=== PATIENT | female | born 1960 | race Caucasian/White ===

== ENCOUNTER 2022-08-09 08:30 | Outpatient (RCR) | payer OTHER, SELFPAY ==
[2022-08-02 11:30] VITALS: BP 164/88; PULSE 76; TEMP 36.9
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
[2022-08-02 11:31] VITALS: BMI 35.5
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
--- NOTE | 2022-08-03 08:39 | HO.PHP ---
The clients case was reviewed and opened in treatment team
--- NOTE | 2022-08-09 12:29 | PC.NURSE ---
Patient presents with increasing depression. Staff report that she has active SI with plan/intent to jump off a bridge or step in front of plane propellers at a local airport. Staff have spoke to patient's sister with patient present who is planning on meeting her sister in the ER. Patient will be a section 12 to the ER and staff will escort her to the ER. Nurse to Nurse done with charge nurse Julita in the ER. Reviewed aforementioned information. Also reviewed that patient has a history of hypothyroidism and hypertension and reports she has not been on medications for this in the past three years.
--- NOTE | 2022-08-09 12:42 | P.PNPSP_ITS ---
Subjective Subjective Date of Service: 08/09/22 Reason For Visit: depression Medical Problems Affecting Mental Status: No Interim History: Patient reports active suicidal ideation, with plan and intent. Plan is to either jump off a bridge, or go to [facility], step out in front of a plane with the propellers moving. Medication Compliance: Intermittent Side effects from medications: No Attending Groups: Yes Review of Systems Acute medical concerns: Yes untreated HTN Medical Review of Systems: unchanged Review of Systems Constitutional: Reports no additional constitutional complaints Mental Status Exam Mental Status Exam Narrative: Patient appears distraught, crying. Patient Appearance: Fatigued Patient Orientation: Person, Place, Time and Situation Level of Consciousness: Awake and Appropriate Patient Behavior: Appropriate, Cooperative and Crying Mood Description: Depressed Affect Description: Depressed Ability to Follow Directions: Good Speech Pattern: Clear Memory Description: Intact Hallucinations: None Delusions: Not Present Thought Process: Intact Thought Content: positive for Suicidal Ideation Depressive Symptoms: Difficulty Sleeping, Changes in Appetite (decreased), Crying Spells, Loss of Int. in Activity, Feelings of Worthlessness, Hopelessness, Feelings of Guilt, Unhappiness, Increased Fatigue, Thoughts of /Suicide and Loss of Energy Judgement: Poor Diagnostics Vital Signs (24Hr): BMI result Body Mass Index 35.5 Assessment & Plan Assessment & Plan (1) Major depressive disorder, recurrent severe without psychotic features: Status: Acute Code(s): F33.2 - Major depressive disorder, recurrent severe without psychotic features Assessment and Plan: This documentation writer was asked to meet with patient. Patient had reported in group and to clinician that she planned to jump off a bridge, or go to [facility] and step in front of a moving playing, so that the PROPELLER could ?chop me up ?. Patient appears distraught, crying. Clinician spoke with patient's sister on the phone. Sister had called program as she is extremely concerned about patient's safety. Patient is agreeable to be escorted to crisis for evaluation. (2) Chronic post-traumatic stress disorder (PTSD): Status: Acute Code(s): F43.12 - Post-traumatic stress disorder, chronic Plan 1. Section 12A signed. 2. Patient to be escorted to crisis for evaluation due to active SI with plans/intent. Patient educated on: diagnosis Informed Consent: understands Reason for contiued partial hosp. stay Substantial Risk for: harm to self Certification I certify that partial hospital treatment is medically necessary due to the symptoms and problems resulting from the patient's mental illness and the failure to treat the patient at the partial hospital level of care would likely result in the patient requiring inpatient psychiatric care which could not be prevented at a less intensive level of care. Total time managing care of this patient today __20__ minutes. Discharge Plan Discharge Attending provider: Rashid Quintanilla Medications: No Action bupropion HCl [Wellbutrin SR] 100 mg Tablet Sustained-Release 12 Hr 100 mg PO BID
--- NOTE | 2022-08-09 16:08 | HO.PHP ---
I sat with Vickie to speak with her sister Cuca to have a plan for the clients safety. Cuca expressed her concerns. We all decided that due to the clients severe level of depression and anxiety with suicidal ideation she would be better served by an inpatient admission. Vickie agreed to this and we devised a plan that included Cuca meeting Vickie at the ED here. Vickie is agreeable to the plan. The crisis team was called and Trini mc NP signed the section and Vickie was walked to the ED.
== END 2022-08-09 23:59 | disposition admitted as inpatient to this hospital (09) ==
LOC: HO.PHPA 08:30
PROVIDERS: Visit Provider Psychiatry & Neurology Psychiatry
DX: F33.2 Major depressive disorder, recurrent severe without psychotic features (principal); F43.12 Post-traumatic stress disorder, chronic
CPT/HCPCS: 90791; 90853

== ENCOUNTER 2022-08-09 13:35 | Inpatient (IN) | payer OTHER, SELFPAY ==
[2022-08-09 13:43] VITALS: BP 150/71; PULSE 92; RESP 18; TEMP 36.8; O2SAT 96; BMI 30.9
--- NOTE | 2022-08-09 13:54 | ED_ITS ---
HPI - General Adult General Chief complaint: Psychiatric Symptoms Stated complaint: sec 12 Time Seen by Provider: 08/09/22 13:54 Source: patient Mode of arrival: ambulatory Limitations: no limitations History of Present Illness HPI narrative: Patient is a 62 year old assigned female at with a history of MDD and PTSD presenting to the emergency department today with suicidal ideation on a section 12. Patient has plan to jump off bridge or run [place] propeller [place] the airport. Patient denies any dizziness, lightheadedness, abdominal pain, nausea, vomiting, fever, chills, blurry vision, double vision, loss of vision, chest pain, difficulty breathing, shortness of breath, back pain, night sweats, pain with urination, increased urinary frequency, increased urinary urgency, blood in her urine or stool, syncope or a near syncopal episode, recent trauma or falls, bowel incontinence, bladder incontinence, bowel retention, bladder retention, or any other complaints at this time. Relieving factors: none Exacerbating factors: none Associated symptoms: denies other symptoms Treatments prior to arrival: none Related Data Home Medications Medication Instructions Recorded Confirmed bupropion HCl 100 mg tablet,12 hr 100 mg PO BID 08/02/22 08/09/22 sustained-release (Wellbutrin SR) magnesium 250 mg tablet 250 mg PO DAILY 08/09/22 08/09/22 melatonin 3 mg capsule 3 mg PO BEDTIME PRN Insomnia 08/09/22 08/09/22 potassium citrate 99 mg capsule 100 mg PO DAILY 08/09/22 08/09/22 Allergies Allergy/AdvReac Type Severity Reaction Status Date / Time No Known Allergies Allergy Verified 08/09/22 14:16 Review of Systems Constitutional: Constitutional: Reports no additional constitutional complaints, Denies chills, Denies fever(s) and Denies night sweats Eyes: Eyes: Reports no additional eye complaints, Denies blurry vision, Denies change in vision, Denies diplopia, Denies eye discharge, Denies loss of vision and Denies eye pain ENT: Denies dizziness Cardiovascular: Cardiovascular: Reports no additional cardiovascular complaints, Denies chest pain, Denies lightheadedness, Denies Loss of Consciousness and Denies dyspnea Respiratory: Respiratory: Reports no additional respiratory complaints and Denies dyspnea Gastrointestinal: Gastrointestinal: Reports no additional gastrointestinal complaints, Denies abdominal pain, Denies melena, Denies hematochezia, Denies change in bowel habits and Denies change in stool character Genitourinary: Genitourinary: Denies hematuria, Denies urinary frequency, Denies dysuria, Denies urinary incontinence, Denies urinary hesitancy and Denies urinary urgency Musculoskeletal: Musculoskeletal: Reports no additional musculoskeletal complaints, Denies numbness and Denies tingling Neurologic: Denies dizziness, Denies loss of vision, Denies numbness and Denies tingling Psychiatric: Psychiatric: Reports no additional psychiatric complaints, Denies homicidal ideation and Reports suicidal ideation Endocrine: Endocrine: Reports no additional endocrine complaints Hematologic/Lymphatic: Hematologic/Lymphatic: Reports no additional hematologic/lymphatic complaints Allergic/Immunologic: Allergic/Immunologic: Reports no additional allergic/immunologic complaints [facility] Past Medical History Attestation statement: The following information was validated with the patient. Source: old records reviewed and nursing notes reviewed Medical History No known health problems Social History Social History Household Members: None Alcohol intake: never Patient Tobacco Use Status: Never used Tobacco Smoked in Last 30 Days: No Use of substances other than those prescribed or required for medical reasons: No Substance Use Type: Unknown Last Used Substance: Unknown Patient : No Physical Exam ED Vital Signs: Vital Signs - 24 hr 08/09/22 13:43 Temperature 98.3 F Pulse Rate 92 Respiratory Rate 18 Blood Pressure 150/71 H Pulse Oximetry 96 Oxygen Delivery Method Room Air BMI result Body Mass Index 30.9 Const General: cooperative, no acute distress, alert and awake Nutritional Appearance: well nourished Orientation/consciousness: patient oriented x3 Limitations: no limitations [facility] Head: Yes normal to inspection and Yes atraumatic Ears: hearing grossly normal bilaterally and external ears normal General nose exam: Normal external nose present, no nasal discharge noted and no epistaxis Face and sinus: Yes normal facial exam, No abrasion and No laceration Mouth: Normal oral and palatal mucosa present, no drooling and no muffled voice Eyes General: appearance normal, both eyes and all related structures Periorbital: periorbital findings normal Eyelids: Yes eyelids normal Conjunctivae: conjunctivae normal Pupils: Equal, round and reactive pupils present EOM: EOMs intact bilaterally Neck Neck: Yes normal visual inspection, Yes full ROM and Yes no lymphadenopathy Chest Chest palpation & inspection: normal inspection of the chest Resp Effort & Inspection: normal respiratory effort and able to speak in complete sentences GI Inspection: Yes normal to inspection Neuro General: patient oriented x3 and moves all extremities Cranial nerves: Yes Equal, round and reactive pupils present Cognition (Neuro): normal cognition Motor exam (neuro): 5/5 motor strength present throughout Sensory Exam: Normal double simultaneous stimulation for sensation Coordination: [id number] test normal Extrem General: Yes normal to inspection, Yes full ROM and Yes capillary refill normal Psych Speech and movement: Normal speech and movement present Affect: Sad affect present Attitude: cooperative Thought content: Suicidality present Medical Decision Making Medical Decision Making [facility] Narrative: Patient is a 62 year old assigned female at with a history of MDD and PTSD presenting to the emergency department today with suicidal ideation. Patient's physical exam was as noted in the physical exam portion of this chart. Patient's blood work was unremarkable. Patient's urine showed no acute process. Patient's EKG was unremarkable. I explained my physical exam findings as well as all test results to the patient. I answered all questions asked by the patient. Patient is an inpatient bed search at this time and will remain in the behavioral pod until she is placed. Differential Diagnosis Differential Diagnoses: The differential diagnosis associated with the present ation includes suicidal ideation Admission/Observation Consideration of admission/observation: Escalation of care including adm ission/observation considered Patient will be admitted to an inpatient psychiatric unit. Lab Data [facility] Lab Attestation statement: I reviewed the patient's lab results. My interpretation of these studies and their corresponding values is that they are grossly normal. 08/09/22 14:06 08/09/22 14:06 Labs: Lab Results 08/09/22 08/09/22 08/09/22 Range/Units 14:02 14:02 14:06 WBC (4.8-10.8) X10*3/uL RBC (4.20-5.50) X10*6/uL Hgb (12.0-16.0) g/dl Hct (37.0-47.0) % MCV (80.0-98.0) fL MCH (27.0-33.0) pg MCHC (31.0-35.0) g/dl RDW (11.0-16.0) % Plt Count (160-400) X10*3/uL MPV (9.4-12.3) fL Immature Gran % (Auto) (0.0-0.4) % Neut % (Auto) (45-73) % Lymph % (Auto) (20-40) % [place] % (Auto) (2-11) % Eos % (Auto) (0-4) % Baso % (Auto) (0-2) % Lymph # (Auto) (1.2-4.9) X10*3/uL [place] # (Auto) (0.1-1.2) X10*3/uL Eos # (Auto) (0.0-0.4) X10*3/uL Baso # (Auto) (0.0-0.2) X10*3/uL Abs Immat Gran (auto) (0.00-0.03) X10*3/uL Absolute Neuts (auto) (2.0-8.3) x10*3/uL Absolute Nucleated RBC (0.0-0.012) X10*3/uL Nucleated RBC % (auto) (0.0-0.2) /100WBC Sodium 135 (135-145) mmol/L Potassium 3.5 (3.3-5.1) mmol/L Chloride 101 (96-108) mmol/L Carbon Dioxide 24 (22-29) mmol/L Anion Gap 14 (12-20) BUN 10 (9-16) mg/dL Creatinine 0.91 (0.5-1.4) mg/dL Estim Creat Clear Calc 65.4 Estimated GFR > 60 Random Glucose 220 H (60-115) mg/dL Calcium 9.6 (8.4-10.2) mg/dL Total Bilirubin 0.5 (0.0-1.0) mg/dL AST 12 (5-31) U/L ALT 20 (0-31) U/L Alkaline Phosphatase 97 (39-117) U/L Total Protein 6.4 L (6.5-8.0) g/dL Albumin 4.2 (3.5-5.0) g/dL TSH 1.19 (0.32-4.0) uIU/mL Urine Color Yellow Urine Appearance Clear Urine pH 6.5 (5.0-9.0) Ur Specific [place] 1.020 (1.005-1.025) Urine Protein Trace (Neg-Trace) mg/dL Urine Glucose (UA) Negative (Negative) mg/dL Urine Ketones Trace (Negative) mg/dL Urine Blood Negative (Negative) Urine Nitrite Negative (Negative) Ur Leukocyte Esterase Moderate (2+) H (Negative) Urine RBC 0-2 (0-2) /HPF Urine WBC 21-50 H (0-5) /HPF Ur Squamous Epith Cells 3-5 (0-2) /HPF Urine Bacteria None Seen (None Seen) Hyaline Casts 0-2 (0-2) /LPF Salicylates < 5.0 L (15-30) mg/dL Urine Opiates Screen Not Detected (Not Detect) Urine Fentanyl Screen Not Detected (Not Detect) Acetaminophen < 17 (<30) mcg/mL Ur Barbiturates Screen Not Detected (Not Detect) Ur Phencyclidine Scrn Not Detected (Not Detect) Ur Amphetamines Screen Not Detected (Not Detect) U Benzodiazepines Scrn Not Detected (Not Detect) Urine Cocaine Screen Not Detected (Not Detect) U Marijuana (THC) Screen Not Detected (Not Detect) Ethyl Alcohol < 10 mg/dL COVID-19 (MIKE) (Negative) COVID-19 Clin Com 08/09/22 08/09/22 Range/Units 14:06 14:06 WBC 7.6 (4.8-10.8) X10*3/uL RBC 5.03 (4.20-5.50) X10*6/uL Hgb 14.2 (12.0-16.0) g/dl Hct 42.3 (37.0-47.0) % MCV 84.1 (80.0-98.0) fL MCH 28.2 (27.0-33.0) pg MCHC 33.6 (31.0-35.0) g/dl RDW 14.3 (11.0-16.0) % Plt Count 279 (160-400) X10*3/uL MPV 9.9 (9.4-12.3) fL Immature Gran % (Auto) 0.3 (0.0-0.4) % Neut % (Auto) 66.6 (45-73) % Lymph % (Auto) 24.9 (20-40) % [place] % (Auto) 5.5 (2-11) % Eos % (Auto) 2.0 (0-4) % Baso % (Auto) 0.7 (0-2) % Lymph # (Auto) 1.9 (1.2-4.9) X10*3/uL [place] # (Auto) 0.4 (0.1-1.2) X10*3/uL Eos # (Auto) 0.2 (0.0-0.4) X10*3/uL Baso # (Auto) 0.1 (0.0-0.2) X10*3/uL Abs Immat Gran (auto) 0.02 (0.00-0.03) X10*3/uL Absolute Neuts (auto) 5.1 (2.0-8.3) x10*3/uL Absolute Nucleated RBC 0.000 (0.0-0.012) X10*3/uL Nucleated RBC % (auto) 0.0 (0.0-0.2) /100WBC Sodium (135-145) mmol/L Potassium (3.3-5.1) mmol/L Chloride (96-108) mmol/L Carbon Dioxide (22-29) mmol/L Anion Gap (12-20) BUN (9-16) mg/dL Creatinine (0.5-1.4) mg/dL Estim Creat Clear Calc Estimated GFR Random Glucose (60-115) mg/dL Calcium (8.4-10.2) mg/dL Total Bilirubin (0.0-1.0) mg/dL AST (5-31) U/L ALT (0-31) U/L Alkaline Phosphatase (39-117) U/L Total Protein (6.5-8.0) g/dL Albumin (3.5-5.0) g/dL TSH (0.32-4.0) uIU/mL Urine Color Urine Appearance Urine pH (5.0-9.0) Ur Specific [place] (1.005-1.025) Urine Protein (Neg-Trace) mg/dL Urine Glucose (UA) (Negative) mg/dL Urine Ketones (Negative) mg/dL Urine Blood (Negative) Urine Nitrite (Negative) Ur Leukocyte Esterase (Negative) Urine RBC (0-2) /HPF Urine WBC (0-5) /HPF Ur Squamous Epith Cells (0-2) /HPF Urine Bacteria (None Seen) Hyaline Casts (0-2) /LPF Salicylates (15-30) mg/dL Urine Opiates Screen (Not Detect) Urine Fentanyl Screen (Not Detect) Acetaminophen (<30) mcg/mL Ur Barbiturates Screen (Not Detect) Ur Phencyclidine Scrn (Not Detect) Ur Amphetamines Screen (Not Detect) U Benzodiazepines Scrn (Not Detect) Urine Cocaine Screen (Not Detect) U Marijuana (THC) Screen (Not Detect) Ethyl Alcohol mg/dL COVID-19 (MIKE) Negative (Negative) COVID-19 Clin Com See Note Independent Interpretation I performed an independent interpretation of an: EKG Interpretation: Vent. Rate: 084 BPM ? ? Atrial Rate: 084 BPM P-R Int: 164 ms? QRS Dur: 106 ms QT Int: 378 ms ? ? ? P-R-T Axes: 037 -15 002 degrees QTc Int: 446 ms ? Normal sinus rhythm Possible Left atrial enlargement Incomplete right bundle branch block Minimal voltage criteria for LVH, may be normal variant ( R in aVL ) Nonspecific T wave abnormality Abnormal ECG No previous ECGs available DD/ 1428 Critical Care Time Critical Care Time Critical Care Time: Yes Total Critical Care Time: 30 Attestation: I spent 30 minutes of Critical Care Time with this patient. This does not include time spent on separately reported billable procedures. Discharge Plan Discharge Clinical Impression: Major depressive disorder, recurrent severe without psychotic features, Suic idal ideation Patient Disposition: Still a Patient Prescriptions: No Action melatonin 3 mg Capsule 3 mg PO BEDTIME PRN (Reason: Insomnia) potassium citrate 99 mg Capsule 100 mg PO DAILY Rx Instructions: OTC Pt will bring In magnesium 250 mg Tablet 250 mg PO DAILY Rx Instructions: OTC as stated by Pt / Pt will have OTC brought in bupropion HCl [Wellbutrin SR] 100 mg Tablet Sustained-Release 12 Hr 100 mg PO BID Rx Instructions: Pt reported taking 6mg last PM Interventions: Garrett-Suicide Risk Severity Scale Last Done: 08/09/22 14:11
--- NOTE | 2022-08-09 13:55 | ECG_ITS ---
Test Reason : MEDICATIONS Blood Pressure : / mmHG Vent. Rate : 084 BPM Atrial Rate : 084 BPM P-R Int : 164 ms QRS Dur : 106 ms QT Int : 378 ms P-R-T Axes : 037 -15 002 degrees QTc Int : 446 ms Normal sinus rhythm Possible Left atrial enlargement Incomplete right bundle branch block Minimal voltage criteria for LVH, may be normal variant ( R in aVL ) Nonspecific T wave abnormality Abnormal ECG No previous ECGs available Referred By: Ruthy Silva Electronically Signed By:Mik Pina
[2022-08-09 14:14] LABS: MANUAL DIFF FLAG NO
[2022-08-09 14:18] LABS: Appearance Urine Clear; Color Urine Yellow; Glucose Urine UA Negative (Negative); Leukocyte Esterase Urine Moderate (2+) (Negative); Nitrite Urine Negative (Negative); PH 6.5 (5.0-9.0); UMIC TRIGGER UA YES; Urine Blood Negative (Negative); Urine Ketones Trace mg/dL (Negative); Urine Protein Trace mg/dL (Neg-Trace)
[2022-08-09 14:18] LABS: Basophils Absolute Auto 0.1 X10*3/uL (0.0-0.2); Basophils Percent Auto 0.7 % (0-2); Eosinophils Absolute Auto 0.2 X10*3/uL (0.0-0.4); Hematocrit 42.3 % (37.0-47.0); Hemoglobin 14.2 g/dl (12.0-16.0); Imm Gran Abs Auto 0.02 X10*3/uL (0.00-0.03); Imm Gran Pct Auto 0.3 % (0.0-0.4); Lymphocytes Absolute Auto 1.9 X10*3/uL (1.2-4.9); Lymphocytes Percent Auto 24.9 % (20-40); Mean Corpuscular HGB Conc 33.6 g/dl (31.0-35.0); Mean Corpuscular Hemoglobin 28.2 pg (27.0-33.0); Mean Corpuscular Volume 84.1 fL (80.0-98.0); Mean Platelet Volume 9.9 fL (9.4-12.3); Monocytes Absolute Auto 0.4 X10*3/uL (0.1-1.2); Monocytes Percent Auto 5.5 % (2-11); Neutrophils Absolute Auto 5.1 x10*3/uL (2.0-8.3); Neutrophils Percent Auto 66.6 % (45-73); Platelet Count 279 X10*3/uL (160-400); Red Blood Count 5.03 X10*6/uL (4.20-5.50); Red Cell Distribution Width 14.3 % (11.0-16.0); White Blood Count 7.6 X10*3/uL (4.8-10.8)
[2022-08-09 14:21] LABS: Bacteria Urine None Seen (None Seen); Hyaline Casts Urine 0-2 /LPF (0-2); RBC Urine 0-2 /HPF (0-2); WBC Urine 21-50 /HPF (0-5)
[2022-08-09 14:30] LABS: Amphetamine Screen Urine Not Detected (Not Detect); Barbiturates, Urine Not Detected (Not Detect); Benzodiazepines Screen Urine Not Detected (Not Detect); Cannabinoid Screen Urine Not Detected (Not Detect); Cocaine Screen Urine Not Detected (Not Detect); Fentanyl, urine Not Detected (Not Detect); Opiate Screen Urine Not Detected (Not Detect); Phencyclidine Screen Urine Not Detected (Not Detect)
[2022-08-09 14:30] LABS: COVID-19 Test Negative (Negative); IDNOW Serial# BCCEAD1C
[2022-08-09 14:34] LABS: Acetaminophen LAB < 17 mcg/mL (<30); Alanine Aminotransferase 20 U/L (0-31); Albumin Level 4.2 g/dL (3.5-5.0); Alkaline Phosphatase 97 U/L (39-117); Anion Gap 14 (12-20); Aspartate Amino Transferase 12 U/L (5-31); Bilirubin Total 0.5 mg/dL (0.0-1.0); Blood Urea Nitrogen 10 mg/dL (9-16); Calcium 9.6 mg/dL (8.4-10.2); Carbon Dioxide 24 mmol/L (22-29); Chloride 101 mmol/L (96-108); Creatinine Clr Calc Pharmacy 65.4; Estimated Glomerular Filt Rate > 60; Ethanol < 10 mg/dL; Glucose Random 220 mg/dL (60-115); Potassium 3.5 mmol/L (3.3-5.1); Salicylate < 5.0 mg/dL (15-30); Sodium 135 mmol/L (135-145); Total Protein 6.4 g/dL (6.5-8.0)
--- NOTE | 2022-08-09 15:07 | PC.NURSE ---
Sec.12A, SI with intent. left marital Home 04/26. Pt is a [employer], has a support network of family. Able to make needs know. No prior attempt. Does not smoke, use ETOH or Street Drugs. Labs were obtained, Urine obtained, EKG obtained. Pt is to bring in OTC medications.
[2022-08-09 15:26] LABS: TSH reflex Free T4 1.19 uIU/mL (0.32-4.0)
--- NOTE | 2022-08-09 17:20 | MHC.CARE ---
patient is voluntary for inpatient LOC, is pending acceptance to a unit.
[2022-08-09 21:54] VITALS: BP 183/85; PULSE 74; RESP 18; TEMP 36.6; O2SAT 96
--- NOTE | 2022-08-09 22:28 | PC.ADMIT ---
21:00 This is a 62 year old white female, referred to the behavioral health pod from [facility], which patient began 08/02/22. Patient was referred to [facility] after being seen by [employer] [place]. Patient is referred to the ED due to active SI with plan intent to jump off bridge or step in front of plane propellers at the [place] airport. Precipitant appears to be that her moved out at the end of June, they are not speaking. Patient describes that their house is large, it feels ?like purgatory.? Not knowing what happens next, both legally with possible divorce as well as in regard to the home they lived in for 37 years has resulted in patient spiraling into more acute depression. Pt. was compliant with and participated in the admission process. She was oriented to the unit.
[2022-08-10] MEDS: buPROPion HCl XL 150 MG TAB.ER.24H PO (08:13)
[2022-08-10] MEDS: Magnesium Oxide 400 MG TABLET 200 MG PO (08:14)
[2022-08-10 08:15] VITALS: BP 185/71; PULSE 71; RESP 18; TEMP 36.6; O2SAT 97
[2022-08-10 09:19] LABS: Estimated Average Glucose 114 mg/dL; Hemoglobin A1C 150.4455 umol/L; Hemoglobin A1c % 5.6 %
[2022-08-10 10:07] LABS: Cholesterol 257 mg/dL; HDL Cholesterol 33 mg/dL; LDL Cholesterol Calculated 194 mg/dl; Triglycerides 151 mg/dL
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
[2022-08-10 13:20] VITALS: BP 185/93
[2022-08-10] MEDS: cloNIDine HCL 0.1 MG TABLET PO ×2 (13:25→19:50)
[2022-08-10 19:49] VITALS: BP 150/73; PULSE 77; RESP 16; TEMP 36.2; O2SAT 96
[2022-08-11] MEDS: cloNIDine HCL 0.1 MG TABLET PO ×2 (08:37→19:19)
[2022-08-11] MEDS: Magnesium Oxide 400 MG TABLET 200 MG PO (08:37)
[2022-08-11] MEDS: buPROPion HCl XL 300 MG TAB.ER.24H PO (08:37)
[2022-08-11 08:50] VITALS: BP 145/72; PULSE 68; RESP 16; TEMP 36.4; O2SAT 97
[2022-08-11 14:27] VITALS: BP 137/63; PULSE 75; RESP 16; TEMP 36; O2SAT 97
--- NOTE | 2022-08-11 15:15 | HO.PSYCHPN ---
Subjective Subjective Date of Service: 08/11/22 Reason For Visit: depression/ si Interim History: This clonidine is working really well for me. It helps my anxiety and blood pressure She reports improvement in her levels of anxiety since starting Clonidine. Also tolerating increase in Wellbutrin. Denies SI. Denies HI. No AVH. Review of Systems Constitutional: Reports no additional constitutional complaints, Denies chills, Denies fever(s) and Denies night sweats Eyes: Reports no additional eye complaints, Denies blurry vision, Denies change in vision, Denies diplopia, Denies eye discharge, Denies loss of vision and Denies eye pain Denies dizziness Cardiovascular: Reports no additional cardiovascular complaints, Denies chest pain, Denies lightheadedness, Denies Loss of Consciousness and Denies dyspnea Respiratory: Reports no additional respiratory complaints and Denies dyspnea Gastrointestinal: Reports no additional gastrointestinal complaints, Denies abdominal pain, Denies melena, Denies hematochezia, Denies change in bowel habits and Denies change in stool character Musculoskeletal: Reports no additional musculoskeletal complaints, Denies numbness and Denies tingling Denies dizziness, Denies loss of vision, Denies numbness and Denies tingling Psychiatric: Reports no additional psychiatric complaints, Denies homicidal ideation and Reports suicidal ideation Endocrine: Reports no additional endocrine complaints Hematologic/Lymphatic: Reports no additional hematologic/lymphatic complaints Allergic/Immunologic: Reports no additional allergic/immunologic complaints Mental Status Exam Mental Status Exam Narrative: Pt is alert and oriented; behavior is cooperative, friendly and calm; patient is not in distress; dressed in casual attire with unkempt hair but adequate hygiene; mood is described as better and affect congruent; eye contact appropriate; Speech is normal rate, volume and prosody and not pressured; no psychomotor agitation/retardation present; thought process is organized and goal directed; Thought content is on processing life experiences, on tx; otherwise pertinent to relevant topics and without any delusional content, paranoid ideations or grandiosity; intermittent passive wish; denies any active SI/HI. There is no evidence of perceptual disturbance. Patients insight and judgment are impaired. Diagnostics Vital Signs (24Hr): Vital Signs - 24 hr 08/10/22 19:49 08/11/22 08:50 08/11/22 14:27 Temperature 97.1 F 97.6 F 96.8 F Pulse Rate 77 68 75 Respiratory Rate 16 16 16 Blood Pressure 150/73 H 145/72 H 137/63 Pulse Oximetry 96 97 97 Oxygen Delivery Method Room Air Room Air Room Air BMI result Body Mass Index 30.9 Labs 08/09/22 14:06 08/09/22 14:06 Labs: Laboratory Results - last 48 hr 08/09/22 08/10/22 08/10/22 14:06 08:34 08:34 Estimat Average Glucose 114 Hemoglobin A1c % 5.6 Triglycerides 151 Cholesterol 257 LDL Cholesterol, Calc 194 HDL Cholesterol 33 TSH 1.19 Medications Medications Current Medications Acetaminophen (Acetaminophen 325 Mg Tablet) 650 mg PO Q6H PRN PRN Reason: Headache/Pain Mild Scale (1-3) Al Hydroxide/Mg Hydroxide (Magnesium Hydrox/Alum Hydrox 30 Ml Oral.Susp) 30 ml PO Q6H PRN PRN Reason: Heartburn/Nausea Bupropion HCl (Bupropion Hcl Xl 300 Mg Tab.Er.24h) 300 mg PO DAILY [facility] Last Admin: 08/11/22 08:37 Dose: 300 mg Clonidine HCl (Clonidine Hcl 0.1 Mg Tablet) 0.1 mg PO BID [facility]; Protocol Last Admin: 08/11/22 08:37 Dose: 0.1 mg Hydroxyzine HCl (Hydroxyzine Hcl 25 Mg Tablet) 25 mg PO Q6H PRN PRN Reason: Anxiety Magnesium Hydroxide (Milk Of Magnesia 30 Ml Oral.Susp) 30 ml PO DAILY PRN PRN Reason: Constipation Magnesium Oxide (Magnesium Oxide 400 Mg Tablet) 200 mg PO DAILY [facility] Last Admin: 08/11/22 08:37 Dose: 200 mg Melatonin (Melatonin 3 Mg Tablet) 3 mg PO BEDTIME PRN PRN Reason: Insomnia Nicotine Polacrilex (Nicotine Polacrilex 2 Mg Gum) 4 mg BUCCAL Q2H PRN PRN Reason: Nicotine Cravings Pat Own Med ( Potassium Citrate 99 Mg Capsule) 99 mg PO DAILY [facility] Last Admin: 08/11/22 08:40 Dose: 99 mg Trazodone HCl (Trazodone Hcl 50 Mg Tablet) 50 mg PO BEDTIME MRX1 PRN PRN Reason: Insomnia Allergies Allergies Allergy/AdvReac Type Severity Reaction Status Date / Time No Known Allergies Allergy Verified 08/09/22 14:16 Assessment & Plan Assessment & Plan (1) Major depressive disorder, recurrent severe without psychotic features: Status: Acute Code(s): F33.2 - Major depressive disorder, recurrent severe without psychotic features (2) Chronic post-traumatic stress disorder (PTSD): Status: Acute Code(s): F43.12 - Post-traumatic stress disorder, chronic 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 -pt has MDD, PTSD; unprocessed trauma and depression slowly worsened mood over years; was recently started on low dose of Wellbutrin and agrees to increase dose to see if effective -passive wish but ultimately hopeful to overcome symptoms and recover; wants to engage in therapy -Htn: says failed Losartan, amlodipine, thiazide; will start Clonidine PLAN: CV Q15 Increased Wellbutrin XL to 300mg daily (and switched from SR) Clonidine 0.1mg bid for HTN seek collateral after care planning 08/11: Continue current plan of care. Reason for continued inpatient stay Substantial Risk for: inability to function and rapid decompensation Time Spent With Patient Time: Total time managing care of this patient today ____ minutes.
[2022-08-11 19:15] VITALS: BP 172/81; PULSE 89; RESP 16; TEMP 36.6; O2SAT 99
[2022-08-11 21:25] VITALS: BP 135/71; PULSE 76; RESP 16
[2022-08-12 08:15] VITALS: BP 163/79; PULSE 75; RESP 18; TEMP 36.2; O2SAT 97
[2022-08-12] MEDS: buPROPion HCl XL 300 MG TAB.ER.24H PO (08:32)
[2022-08-12] MEDS: Magnesium Oxide 400 MG TABLET 200 MG PO (08:32)
[2022-08-12] MEDS: cloNIDine HCL 0.1 MG TABLET PO ×3 (08:33→21:01)
[2022-08-12 12:34] VITALS: BP 153/67; PULSE 74; RESP 18; TEMP 36.1; O2SAT 96
[2022-08-12 14:25] VITALS: BP 194/92; PULSE 87
[2022-08-12 17:43] VITALS: BP 142/68; PULSE 73; RESP 18; TEMP 36.6; O2SAT 96
--- NOTE | 2022-08-12 19:47 | P.PNPSI_ITS ---
Subjective Subjective Date of Service: 08/12/22 Reason For Visit: depression/ si Interim History: Patient seen and discussed. She reports feeling well. She is wondering about a midday dose of clonidine to help with daytime anxiety and because she notes the effects weaning and her BP rising as well midday. It makes me a little tired but I am getting used to it. She reports improvement in her levels of anxiety since starting Clonidine. Also tolerating increase in Wellbutrin. Denies SI. Denies HI. No AVH. Review of Systems Constitutional: Reports no additional constitutional complaints, Denies chills, Denies fever(s) and Denies night sweats Eyes: Reports no additional eye complaints, Denies blurry vision, Denies change in vision, Denies diplopia, Denies eye discharge, Denies loss of vision and Denies eye pain Denies dizziness Cardiovascular: Reports no additional cardiovascular complaints, Denies chest pain, Denies lightheadedness, Denies Loss of Consciousness and Denies dyspnea Respiratory: Reports no additional respiratory complaints and Denies dyspnea Gastrointestinal: Reports no additional gastrointestinal complaints, Denies abdominal pain, Denies melena, Denies hematochezia, Denies change in bowel habits and Denies change in stool character Musculoskeletal: Reports no additional musculoskeletal complaints, Denies numbness and Denies tingling Denies dizziness, Denies loss of vision, Denies numbness and Denies tingling Psychiatric: Reports no additional psychiatric complaints, Denies homicidal ideation and Reports suicidal ideation Endocrine: Reports no additional endocrine complaints Hematologic/Lymphatic: Reports no additional hematologic/lymphatic complaints Allergic/Immunologic: Reports no additional allergic/immunologic complaints Mental Status Exam Mental Status Exam Narrative: Pt is alert and oriented; behavior is cooperative, friendly and calm; patient is not in distress; dressed in casual attire with unkempt hair but adequate hygiene; mood is described as better and affect congruent; eye contact appropriate; Speech is normal rate, volume and prosody and not pressured; no psychomotor agitation/retardation present; thought process is organized and goal directed; Thought content is on processing life experiences, on tx; otherwise pertinent to relevant topics and without any delusional content, paranoid ideations or grandiosity; intermittent passive wish; denies any active SI/HI. There is no evidence of perceptual disturbance. Patients insight and judgment are impaired. Diagnostics Vital Signs (24Hr): Vital Signs - 24 hr 08/11/22 21:25 08/12/22 08:15 08/12/22 12:34 Temperature 97.2 F 97.0 F Pulse Rate 76 75 74 Respiratory Rate 16 18 18 Blood Pressure 135/71 163/79 H 153/67 H Pulse Oximetry 97 96 Oxygen Delivery Method Room Air Room Air 08/12/22 14:25 08/12/22 17:43 Temperature 97.8 F Pulse Rate 87 73 Respiratory Rate 18 Blood Pressure 194/92 H 142/68 H Pulse Oximetry 96 Oxygen Delivery Method Room Air BMI result Body Mass Index 30.9 Labs 08/09/22 14:06 08/09/22 14:06 Medications Medications Current Medications Acetaminophen (Acetaminophen 325 Mg Tablet) 650 mg PO Q6H PRN PRN Reason: Headache/Pain Mild Scale (1-3) Al Hydroxide/Mg Hydroxide (Magnesium Hydrox/Alum Hydrox 30 Ml Oral.Susp) 30 ml PO Q6H PRN PRN Reason: Heartburn/Nausea Bupropion HCl (Bupropion Hcl Xl 300 Mg Tab.Er.24h) 300 mg PO DAILY [facility] Last Admin: 08/12/22 08:32 Dose: 300 mg Clonidine HCl (Clonidine Hcl 0.1 Mg Tablet) 0.1 mg PO TID [facility]; Protocol Last Admin: 08/12/22 14:32 Dose: 0.1 mg Hydroxyzine HCl (Hydroxyzine Hcl 25 Mg Tablet) 25 mg PO Q6H PRN PRN Reason: Anxiety Magnesium Hydroxide (Milk Of Magnesia 30 Ml Oral.Susp) 30 ml PO DAILY PRN PRN Reason: Constipation Magnesium Oxide (Magnesium Oxide 400 Mg Tablet) 200 mg PO DAILY [facility] Last Admin: 08/12/22 08:32 Dose: 200 mg Melatonin (Melatonin 3 Mg Tablet) 3 mg PO BEDTIME PRN PRN Reason: Insomnia Nicotine Polacrilex (Nicotine Polacrilex 2 Mg Gum) 4 mg BUCCAL Q2H PRN PRN Reason: Nicotine Cravings Pat Own Med ( Potassium Citrate 99 Mg Capsule) 99 mg PO DAILY [facility] Last Admin: 08/12/22 08:32 Dose: 99 mg Trazodone HCl (Trazodone Hcl 50 Mg Tablet) 50 mg PO BEDTIME MRX1 PRN PRN Reason: Insomnia Allergies Allergies Allergy/AdvReac Type Severity Reaction Status Date / Time No Known Allergies Allergy Verified 08/09/22 14:16 Assessment & Plan Assessment & Plan (1) Major depressive disorder, recurrent severe without psychotic features: Status: Acute Code(s): F33.2 - Major depressive disorder, recurrent severe without psychotic features (2) Chronic post-traumatic stress disorder (PTSD): Status: Acute Code(s): F43.12 - Post-traumatic stress disorder, chronic 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 -pt has MDD, PTSD; unprocessed trauma and depression slowly worsened mood over years; was recently started on low dose of Wellbutrin and agrees to increase do se to see if effective -passive wish but ultimately hopeful to overcome symptoms and recover; wants to engage in therapy -Htn: says failed Losartan, amlodipine, thiazide; will start Clonidine PLAN: CV Q15 Increased Wellbutrin XL to 300mg daily (and switched from SR) Clonidine 0.1mg bid for HTN seek collateral after care planning 08/11: Continue current plan of care. 08/12: Add midday dose of Clonidine. Otherwise continue same treatment plan. Reason for continued inpatient stay Substantial Risk for: harm to self, inability to function and rapid decompensation Time Spent With Patient Time: Total time managing care of this patient today ____ minutes.
[2022-08-12] MEDS: Melatonin 3 MG TABLET PO (21:01)
[2022-08-13] MEDS: Magnesium Oxide 400 MG TABLET 200 MG PO (08:30)
[2022-08-13] MEDS: cloNIDine HCL 0.1 MG TABLET PO ×3 (08:32→22:46)
[2022-08-13] MEDS: buPROPion HCl XL 300 MG TAB.ER.24H PO (08:32)
--- NOTE | 2022-08-13 08:32 | P.PNPSI_ITS ---
Subjective Subjective Date of Service: 08/13/22 Reason For Visit: depression/ si Interim History: met with pt; discussed with team still depressed; feels starts to do better and then will have negative thought. Intermittent SI; not sure if wellbutrin helping but agrees to increase to see. Plagued by worries on how to deal with dissolution of marriage, what to do w/ her house, challenging relationships w/ kids. Did CBT exercise. Mental Status Exam Mental Status Exam Narrative: Pt is alert and oriented; behavior is cooperative, friendly and calm; patient is not in distress; dressed in casual attire with unkempt hair but adequate hygiene; mood is described as depressed and affect congruent; eye contact appropriate; Speech is normal rate, volume and prosody and not pressured; no psychomotor agitation/retardation present; thought process is organized and goal directed; Thought content is on processing life experiences, on tx; otherwise pertinent to relevant topics and without any delusional content, paranoid ideations or grandiosity; intermittent passive wish; denies any active SI/HI. There is no evidence of perceptual disturbance. Patients insight and judgment are impaired. Diagnostics Vital Signs (24Hr): Vital Signs - 24 hr 08/12/22 12:34 08/12/22 14:25 08/12/22 17:43 Temperature 97.0 F 97.8 F Pulse Rate 74 87 73 Respiratory Rate 18 18 Blood Pressure 153/67 H 194/92 H 142/68 H Pulse Oximetry 96 96 Oxygen Delivery Method Room Air Room Air BMI result Body Mass Index 30.9 Labs 08/09/22 14:06 08/09/22 14:06 Medications Medications Current Medications Acetaminophen (Acetaminophen 325 Mg Tablet) 650 mg PO Q6H PRN PRN Reason: Headache/Pain Mild Scale (1-3) Al Hydroxide/Mg Hydroxide (Magnesium Hydrox/Alum Hydrox 30 Ml Oral.Susp) 30 ml PO Q6H PRN PRN Reason: Heartburn/Nausea Bupropion HCl (Bupropion Hcl Xl 300 Mg Tab.Er.24h) 300 mg PO DAILY [facility] Last Admin: 08/12/22 08:32 Dose: 300 mg Clonidine HCl (Clonidine Hcl 0.1 Mg Tablet) 0.1 mg PO TID [facility]; Protocol Last Admin: 08/12/22 21:01 Dose: 0.1 mg Hydroxyzine HCl (Hydroxyzine Hcl 25 Mg Tablet) 25 mg PO Q6H PRN PRN Reason: Anxiety Magnesium Hydroxide (Milk Of Magnesia 30 Ml Oral.Susp) 30 ml PO DAILY PRN PRN Reason: Constipation Magnesium Oxide (Magnesium Oxide 400 Mg Tablet) 200 mg PO DAILY [facility] Last Admin: 08/12/22 08:32 Dose: 200 mg Melatonin (Melatonin 3 Mg Tablet) 3 mg PO BEDTIME PRN PRN Reason: Insomnia Last Admin: 08/12/22 21:01 Dose: 3 mg Nicotine Polacrilex (Nicotine Polacrilex 2 Mg Gum) 4 mg BUCCAL Q2H PRN PRN Reason: Nicotine Cravings Pat Own Med ( Potassium Citrate 99 Mg Capsule) 99 mg PO DAILY [facility] Last Admin: 08/12/22 08:32 Dose: 99 mg Trazodone HCl (Trazodone Hcl 50 Mg Tablet) 50 mg PO BEDTIME MRX1 PRN PRN Reason: Insomnia Allergies Allergies Allergy/AdvReac Type Severity Reaction Status Date / Time No Known Allergies Allergy Verified 08/09/22 14:16 Assessment & Plan Assessment & Plan (1) Major depressive disorder, recurrent severe without psychotic features: Status: Acute Code(s): F33.2 - Major depressive disorder, recurrent severe without psychotic features (2) Chronic post-traumatic stress disorder (PTSD): Status: Acute Code(s): F43.12 - Post-traumatic stress disorder, chronic 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 -pt has MDD, PTSD; unprocessed trauma and depression slowly worsened mood over years; was recently started on low dose of Wellbutrin and agrees to increase dose to see if effective -passive wish but ultimately hopeful to overcome symptoms and recover; wants to engage in therapy -Htn: says failed Losartan, amlodipine, thiazide; will start Clonidine PLAN: CV Q15 Increased Wellbutrin XL to 450mg daily (and switched from SR) Clonidine 0.1mg bid for HTN seek collateral after care planning 08/11: Continue current plan of care. 08/12: Add midday dose of Clonidine. Otherwise continue same treatment plan. 08/13: depressed; no improvement in mood; increase wellbuttin Patient educated on: diagnosis, medication risk/benefits and therapeutic strategies Informed Consent: understands Reason for continued inpatient stay Substantial Risk for: harm to self and rapid decompensation Time Spent With Patient Time: Total time managing care of this patient today ____ minutes.
[2022-08-13 09:00] VITALS: BP 137/70; PULSE 69; RESP 18; TEMP 36.4; O2SAT 97
[2022-08-13 14:00] VITALS: BP 150/72
[2022-08-13 19:25] VITALS: BP 149/65; PULSE 79; RESP 18; TEMP 36.1; O2SAT 95
[2022-08-13] MEDS: Melatonin 3 MG TABLET PO (22:46)
[2022-08-14] MEDS: Magnesium Oxide 400 MG TABLET 200 MG PO (08:34)
[2022-08-14] MEDS: cloNIDine HCL 0.1 MG TABLET PO ×3 (08:34→21:51)
[2022-08-14] MEDS: buPROPion HCl XL 150 MG TAB.ER.24H 450 MG PO (08:35)
--- NOTE | 2022-08-14 10:36 | HO.PSYCHPN ---
Subjective Subjective Date of Service: 08/14/22 Reason For Visit: depression/ si Interim History: met w/ pt, discussed with team pt shared journal entries where she wrote down numerous upsetting thoughts she's had and had dating back to childhood trauma. Consistent themes were feeling not wanted, abandoned, neglected and fear. Pt shared long history of feeling fearful about numerous things, mostly around her childrens safety and people not trusting her; she was able to link this lifetime anxiety/fearfulness back to childhood trauma. Discussed meds and pt agrees to start Prozac given ptsd/anxiety and that wellbutrin not seemingly effective Mental Status Exam Mental Status Exam Narrative: Pt is alert and oriented; behavior is cooperative, friendly and calm; patient is not in distress; dressed in casual attire with unkempt hair but adequate hygiene; mood is described as depressed and affect congruent; eye contact appropriate; Speech is normal rate, volume and prosody and not pressured; no psychomotor agitation/retardation present; thought process is organized and goal directed; Thought content is on processing life experiences, on tx; otherwise pertinent to relevant topics and without any delusional content, paranoid ideations or grandiosity; intermittent passive wish; denies any active SI/HI. There is no evidence of perceptual disturbance. Patients insight and judgment are impaired but improving. Diagnostics Vital Signs (24Hr): Vital Signs - 24 hr 08/13/22 14:00 08/13/22 19:25 Temperature 97.0 F Pulse Rate 79 Respiratory Rate 18 Blood Pressure 150/72 H 149/65 H Pulse Oximetry 95 Oxygen Delivery Method Room Air BMI result Body Mass Index 30.9 Labs 08/09/22 14:06 08/09/22 14:06 Medications Medications Current Medications Acetaminophen (Acetaminophen 325 Mg Tablet) 650 mg PO Q6H PRN PRN Reason: Headache/Pain Mild Scale (1-3) Al Hydroxide/Mg Hydroxide (Magnesium Hydrox/Alum Hydrox 30 Ml Oral.Susp) 30 ml PO Q6H PRN PRN Reason: Heartburn/Nausea Bupropion HCl (Bupropion Hcl Xl 150 Mg Tab.Er.24h) 450 mg PO DAILY [facility] Last Admin: 08/14/22 08:35 Dose: 450 mg Clonidine HCl (Clonidine Hcl 0.1 Mg Tablet) 0.1 mg PO TID [facility]; Protocol Last Admin: 08/14/22 08:34 Dose: 0.1 mg Clonidine HCl (Clonidine Hcl 0.1 Mg Tablet) 0.1 mg PO Q4H PRN; Protocol PRN Reason: Anxiety Hydroxyzine HCl (Hydroxyzine Hcl 25 Mg Tablet) 25 mg PO Q6H PRN PRN Reason: Anxiety Magnesium Hydroxide (Milk Of Magnesia 30 Ml Oral.Susp) 30 ml PO DAILY PRN PRN Reason: Constipation Magnesium Oxide (Magnesium Oxide 400 Mg Tablet) 200 mg PO DAILY [facility] Last Admin: 08/14/22 08:34 Dose: 200 mg Melatonin (Melatonin 3 Mg Tablet) 3 mg PO BEDTIME PRN PRN Reason: Insomnia Last Admin: 08/13/22 22:46 Dose: 3 mg Nicotine Polacrilex (Nicotine Polacrilex 2 Mg Gum) 4 mg BUCCAL Q2H PRN PRN Reason: Nicotine Cravings Pat Own Med ( Potassium Citrate 99 Mg Capsule) 99 mg PO DAILY [facility] Last Admin: 08/14/22 08:36 Dose: 99 mg Trazodone HCl (Trazodone Hcl 50 Mg Tablet) 50 mg PO BEDTIME MRX1 PRN PRN Reason: Insomnia Allergies Allergies Allergy/AdvReac Type Severity Reaction Status Date / Time No Known Allergies Allergy Verified 08/09/22 14:16 Assessment & Plan Assessment & Plan (1) Major depressive disorder, recurrent severe without psychotic features: Status: Acute Code(s): F33.2 - Major depressive disorder, recurrent severe without psychotic features (2) Chronic post-traumatic stress disorder (PTSD): Status: Acute Code(s): F43.12 - Post-traumatic stress disorder, chronic 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 -pt has MDD, PTSD; unprocessed trauma and depression slowly worsened mood over years; was recently started on low dose of Wellbutrin and agrees to increase dose to see if effective -passive wish but ultimately hopeful to overcome symptoms and recover; wants to engage in therapy -Htn: says failed Losartan, amlodipine, thiazide; will start Clonidine PLAN: CV Q15 START Prozac 10mg daily Continue Wellbutrin XL to 450mg daily (and switched from SR) Clonidine 0.1mg bid for HTN seek collateral after care planning 08/11: Continue current plan of care. 08/12: Add midday dose of Clonidine. Otherwise continue same treatment plan. 08/13: depressed; no improvement in mood; increase wellbuttin 08/14 pt shared hx of anxiety/fearfulness; Discussed meds and pt agrees to start Prozac given ptsd/anxiety and that wellbutrin not seemingly effective; will continue Wellbutrin for now but if Prozac proves helpful, will likely taper and dc Patient educated on: diagnosis, medication risk/benefits and therapeutic strategies Informed Consent: understands Reason for continued inpatient stay Substantial Risk for: rapid decompensation Time Spent With Patient Time: Total time managing care of this patient today ____ minutes.
[2022-08-14 14:16] VITALS: BP 170/87; PULSE 90; RESP 18; O2SAT 97
[2022-08-14] MEDS: FLUoxetine HCl 10 MG CAPSULE PO (18:25)
[2022-08-14 21:45] VITALS: BP 150/69; PULSE 76; TEMP 36.1; O2SAT 98
[2022-08-14] MEDS: Melatonin 3 MG TABLET PO (21:51)
[2022-08-15] MEDS: hydrOXYzine HCL 25 MG TABLET PO (03:42)
[2022-08-15] MEDS: FLUoxetine HCl 10 MG CAPSULE PO (08:56)
[2022-08-15] MEDS: Magnesium Oxide 400 MG TABLET 200 MG PO (08:56)
[2022-08-15] MEDS: buPROPion HCl XL 150 MG TAB.ER.24H 450 MG PO (08:56)
[2022-08-15] MEDS: cloNIDine HCL 0.1 MG TABLET PO ×3 (08:56→21:58)
[2022-08-15 09:00] VITALS: BP 177/85; PULSE 65; RESP 16; TEMP 36.3; O2SAT 100
--- NOTE | 2022-08-15 11:22 | P.PNPSI_ITS ---
Subjective Subjective Date of Service: 08/15/22 Reason For Visit: depression/ si Interim History: Met with patient; discussed with team Patient woke up this morning feeling very suicidal and unsafe; she thinks it may have been due to getting Benadryl early in the morning which she says has dysregulated her before. She also wonders if going through history of trauma yesterday might have also been triggering. By the end of the day, Patient reported SI had resolved. She remains depressed but is starting to feel a little hopeful that with therapy and medication she will be able to overcome this challenging. Of her life; had a visit from sister who was very encouraging. Patient agrees to increased dose of Prozac to 20 mg; reviewed risks/side effects again which patient understands and wants to proceed with regimen Mental Status Exam Mental Status Exam Narrative: Pt is alert and oriented; behavior is cooperative, friendly and calm; patient is not in distress; dressed in casual attire with unkempt hair but adequate hygiene; mood is described as okay now and affect congruent; eye contact appropriate; Speech is normal rate, volume and prosody and not pressured; no psychomotor agitation/retardation present; thought process is organized and goal directed; Thought content is on processing life experiences, on tx; otherwise pertinent to relevant topics and without any delusional content, paranoid ideations or grandiosity; intermittent passive wish; positive SI/HI. There is no evidence of perceptual disturbance. Patients insight and judgment are impaired but improving. Diagnostics Vital Signs (24Hr): Vital Signs - 24 hr 08/14/22 14:16 08/14/22 21:45 08/15/22 09:00 Temperature 96.9 F 97.3 F Pulse Rate 90 76 65 Respiratory Rate 18 16 Blood Pressure 170/87 H 150/69 H 177/85 H Pulse Oximetry 97 98 100 Oxygen Delivery Method Room Air Room Air Room Air BMI result Body Mass Index 30.9 Labs 08/09/22 14:06 08/09/22 14:06 Medications Medications Current Medications Acetaminophen (Acetaminophen 325 Mg Tablet) 650 mg PO Q6H PRN PRN Reason: Headache/Pain Mild Scale (1-3) Al Hydroxide/Mg Hydroxide (Magnesium Hydrox/Alum Hydrox 30 Ml Oral.Susp) 30 ml PO Q6H PRN PRN Reason: Heartburn/Nausea Bupropion HCl (Bupropion Hcl Xl 150 Mg Tab.Er.24h) 450 mg PO DAILY [facility] Last Admin: 08/15/22 08:56 Dose: 450 mg Clonidine HCl (Clonidine Hcl 0.1 Mg Tablet) 0.1 mg PO TID [facility]; Protocol Last Admin: 08/15/22 08:56 Dose: 0.1 mg Clonidine HCl (Clonidine Hcl 0.1 Mg Tablet) 0.1 mg PO Q4H PRN; Protocol PRN Reason: Anxiety Fluoxetine HCl (Fluoxetine Hcl 10 Mg Capsule) 10 mg PO DAILY [facility] Last Admin: 08/15/22 08:56 Dose: 10 mg Hydroxyzine HCl (Hydroxyzine Hcl 25 Mg Tablet) 25 mg PO Q6H PRN PRN Reason: Anxiety Last Admin: 08/15/22 03:42 Dose: 25 mg Magnesium Hydroxide (Milk Of Magnesia 30 Ml Oral.Susp) 30 ml PO DAILY PRN PRN Reason: Constipation Magnesium Oxide (Magnesium Oxide 400 Mg Tablet) 200 mg PO DAILY [facility] Last Admin: 08/15/22 08:56 Dose: 200 mg Melatonin (Melatonin 3 Mg Tablet) 3 mg PO BEDTIME PRN PRN Reason: Insomnia Last Admin: 08/14/22 21:51 Dose: 3 mg Nicotine Polacrilex (Nicotine Polacrilex 2 Mg Gum) 4 mg BUCCAL Q2H PRN PRN Reason: Nicotine Cravings Pat Own Med ( Potassium Citrate 99 Mg Capsule) 99 mg PO DAILY [facility] Last Admin: 08/15/22 09:01 Dose: 99 mg Trazodone HCl (Trazodone Hcl 50 Mg Tablet) 50 mg PO BEDTIME MRX1 PRN PRN Reason: Insomnia Allergies Allergies Allergy/AdvReac Type Severity Reaction Status Date / Time No Known Allergies Allergy Verified 08/09/22 14:16 Assessment & Plan Assessment & Plan (1) Major depressive disorder, recurrent severe without psychotic features: Status: Acute Code(s): F33.2 - Major depressive disorder, recurrent severe without psychotic features (2) Chronic post-traumatic stress disorder (PTSD): Status: Acute Code(s): F43.12 - Post-traumatic stress disorder, chronic 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 -pt has MDD, PTSD; unprocessed trauma and depression slowly worsened mood over years; was recently started on low dose of Wellbutrin and agrees to increase dose to see if effective -passive wish but ultimately hopeful to overcome symptoms and recover; wants to engage in therapy -Htn: says failed Losartan, amlodipine, thiazide; will start Clonidine PLAN: CV Q15 Increased to Prozac 20 mg daily Continue Wellbutrin XL to 450mg daily (and switched from SR) Clonidine 0.1mg bid for HTN seek collateral after care planning 08/11: Continue current plan of care. 08/12: Add midday dose of Clonidine. Otherwise continue same treatment plan. 08/13: depressed; no improvement in mood; increase wellbuttin 08/14 pt shared hx of anxiety/fearfulness; Discussed meds and pt agrees to start Prozac given ptsd/anxiety and that wellbutrin not seemingly effective; will continue Wellbutrin for now but if Prozac proves helpful, will likely taper and dc 08/15 SI this morning later on the day resolved; agrees to increase Prozac to 20 mg; will continue with Wellbutrin for now. Patient engaged in treatment and gain perspective on her self which is helping her pursues emotional stability Patient educated on: diagnosis and medication risk/benefits Informed Consent: understands Reason for continued inpatient stay Substantial Risk for: rapid decompensation Time Spent With Patient Time: Total time managing care of this patient today ____ minutes.
[2022-08-15 13:00] VITALS: BP 174/83; PULSE 82
[2022-08-15 17:51] VITALS: BP 162/81; PULSE 70; TEMP 36.7; O2SAT 97
[2022-08-15] MEDS: Melatonin 3 MG TABLET PO (21:58)
[2022-08-16] MEDS: buPROPion HCl XL 150 MG TAB.ER.24H 450 MG PO (08:40)
[2022-08-16] MEDS: Magnesium Oxide 400 MG TABLET 200 MG PO (08:41)
[2022-08-16] MEDS: FLUoxetine HCl 20 MG CAPSULE PO (08:41)
[2022-08-16] MEDS: cloNIDine HCL 0.1 MG TABLET PO ×2 (08:41→14:04)
[2022-08-16 08:46] VITALS: BP 184/87; PULSE 69; RESP 16; TEMP 36.9; O2SAT 96
--- NOTE | 2022-08-16 09:51 | P.PNPSI_ITS ---
Subjective Subjective Date of Service: 08/16/22 Reason For Visit: depression/ si Interim History: Met with patient; discussed with team Patient reported doing better today, having slept well and waking up calm; however patient had and unwanted negative thought which started her feeling down again. Patient got triggered during a grouping your talking about sleep hygiene, missing her who has moved out of the house. Patient started thinking she was unwanted and unloved. Patient was willing to engage in CBT exercise and deconstruct the thought which clearly revealed that this thought was untrue, that she was very much loved and cared about by her family and friends and . Patient saw all the disconnect between what she believed to be true and was actually true and how this false belief has affected much of her life. Patient felt relieved to have gone through the exercise and learn how to challenge erroneous thinking. Mental Status Exam Mental Status Exam Narrative: Pt is alert and oriented; behavior is cooperative, friendly and calm; patient is not in distress; dressed in casual attire with unkempt hair but adequate hygiene; mood is described as little down and affect congruent; eye contact appropriate; Speech is normal rate, volume and prosody and not pressured; no psychomotor agitation/retardation present; thought process is organized and goal directed; Thought content is on processing life experiences, on tx; otherwise pertinent to relevant topics and without any delusional content, paranoid ideations or grandiosity; intermittent passive wish; positive SI/HI. There is no evidence of perceptual disturbance. Patients insight and judgment are impaired but improving. Diagnostics Vital Signs (24Hr): Vital Signs - 24 hr 08/15/22 13:00 08/15/22 17:51 Temperature 98.1 F Pulse Rate 82 70 Blood Pressure 174/83 H 162/81 H Pulse Oximetry 97 Oxygen Delivery Method Room Air BMI result Body Mass Index 30.9 Labs 08/09/22 14:06 08/09/22 14:06 Medications Medications Current Medications Acetaminophen (Acetaminophen 325 Mg Tablet) 650 mg PO Q6H PRN PRN Reason: Headache/Pain Mild Scale (1-3) Al Hydroxide/Mg Hydroxide (Magnesium Hydrox/Alum Hydrox 30 Ml Oral.Susp) 30 ml PO Q6H PRN PRN Reason: Heartburn/Nausea Bupropion HCl (Bupropion Hcl Xl 150 Mg Tab.Er.24h) 450 mg PO DAILY [facility] Last Admin: 08/16/22 08:40 Dose: 450 mg Clonidine HCl (Clonidine Hcl 0.1 Mg Tablet) 0.1 mg PO TID [facility]; Protocol Last Admin: 08/16/22 08:41 Dose: 0.1 mg Clonidine HCl (Clonidine Hcl 0.1 Mg Tablet) 0.1 mg PO Q4H PRN; Protocol PRN Reason: Anxiety Fluoxetine HCl (Fluoxetine Hcl 20 Mg Capsule) 20 mg PO DAILY [facility] Last Admin: 08/16/22 08:41 Dose: 20 mg Magnesium Hydroxide (Milk Of Magnesia 30 Ml Oral.Susp) 30 ml PO DAILY PRN PRN Reason: Constipation Magnesium Oxide (Magnesium Oxide 400 Mg Tablet) 200 mg PO DAILY [facility] Last Admin: 08/16/22 08:41 Dose: 200 mg Melatonin (Melatonin 3 Mg Tablet) 3 mg PO BEDTIME [facility] Last Admin: 08/15/22 21:58 Dose: 3 mg Melatonin (Melatonin 3 Mg Tablet) 3 mg PO BEDTIME PRN PRN Reason: continued insomnia upto 4am Nicotine Polacrilex (Nicotine Polacrilex 2 Mg Gum) 4 mg BUCCAL Q2H PRN PRN Reason: Nicotine Cravings Pat Own Med ( Potassium Citrate 99 Mg Capsule) 99 mg PO DAILY [facility] Last Admin: 08/16/22 08:44 Dose: 99 mg Trazodone HCl (Trazodone Hcl 50 Mg Tablet) 50 mg PO BEDTIME MRX1 PRN PRN Reason: Insomnia Allergies Allergies Allergy/AdvReac Type Severity Reaction Status Date / Time No Known Allergies Allergy Verified 08/09/22 14:16 Assessment & Plan Assessment & Plan (1) Major depressive disorder, recurrent severe without psychotic features: Status: Acute Code(s): F33.2 - Major depressive disorder, recurrent severe without psychotic features (2) Chronic post-traumatic stress disorder (PTSD): Status: Acute Code(s): F43.12 - Post-traumatic stress disorder, chronic 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 -pt has MDD, PTSD; unprocessed trauma and depression slowly worsened mood over years; was recently started on low dose of Wellbutrin and agrees to increase dose to see if effective -passive wish but ultimately hopeful to overcome symptoms and recover; wants to engage in therapy -Htn: says failed Losartan, amlodipine, thiazide; will start Clonidine PLAN: CV Q15 Increased to Prozac 20 mg daily Continue Wellbutrin XL to 450mg daily (and switched from SR) Clonidine 0.1mg bid for HTN seek collateral after care planning 08/11: Continue current plan of care. 08/12: Add midday dose of Clonidine. Otherwise continue same treatment plan. 08/13: depressed; no improvement in mood; increase wellbuttin 08/14 pt shared hx of anxiety/fearfulness; Discussed meds and pt agrees to start Prozac given ptsd/anxiety and that wellbutrin not seemingly effective; will continue Wellbutrin for now but if Prozac proves helpful, will likely taper and dc 08/15 SI this morning later on the day resolved; agrees to increase Prozac to 20 mg; will continue with Wellbutrin for now. Patient engaged in treatment and gain perspective on her self which is helping her pursues emotional stability 08/16 patient remains very engaged in treatment and pushing herself to examine her thoughts and feelings; using CBT skills that she is learning during admission. Patient's most prominent symptom is anxiety which over time produced depression; will continue with Prozac 20 mg. Debated whether to taper down Wellbutrin but given the fact that patient became severely decompensated, decided to continue both medications for now and that once an outpatient, demonstrating consistent stability, can then see if monotherapy is adequate. Currently no side effects -blood pressure remains elevated; will see if patient is willing to start hydralazine Patient educated on: diagnosis and medication risk/benefits Informed Consent: understands Reason for continued inpatient stay Substantial Risk for: rapid decompensation Time Spent With Patient Time: Total time managing care of this patient today ____ minutes.
[2022-08-16 13:00] VITALS: BP 172/80; PULSE 72; RESP 16; TEMP 36.8; O2SAT 96
[2022-08-16 18:00] VITALS: BP 174/81; PULSE 79; RESP 16; TEMP 36.6; O2SAT 97
[2022-08-16] MEDS: cloNIDine HCL 0.2 MG TABLET PO (20:31)
[2022-08-16] MEDS: Melatonin 3 MG TABLET PO (20:31)
[2022-08-17] MEDS: Melatonin 3 MG TABLET PO ×2 (00:55→21:21)
[2022-08-17 09:14] VITALS: BP 150/70; PULSE 95; RESP 16; TEMP 36.7; O2SAT 98
[2022-08-17] MEDS: cloNIDine HCL 0.2 MG TABLET PO ×3 (09:17→21:22)
[2022-08-17] MEDS: buPROPion HCl XL 300 MG TAB.ER.24H PO (09:17)
[2022-08-17] MEDS: Magnesium Oxide 400 MG TABLET 200 MG PO (09:17)
[2022-08-17] MEDS: FLUoxetine HCl 20 MG CAPSULE PO (09:17)
--- NOTE | 2022-08-17 10:18 | HO.PSYCHPN ---
Subjective Subjective Date of Service: 08/17/22 Reason For Visit: depression/ si Interim History: Met with patient; discussed with team Patient remains up and down, feeling a little better but then negative thought brings her crashing down to depression and hopelessness. Patient feels overwhelmed with thought of having to return to her empty house and is very afraid of being alone. [employer] and patient trouble she did these problems and she agreed she has to except at it is going to be difficult going forward. Mental Status Exam Mental Status Exam Narrative: Pt is alert and oriented; behavior is cooperative, friendly and calm; patient is not in distress; dressed in casual attire with unkempt hair but adequate hygiene; mood is described as not so good... and affect congruent; eye contact appropriate; Speech is normal rate, volume and prosody and not pressured; no psychomotor agitation/retardation present; thought process is organized and goal directed; Thought content is on processing life experiences, on tx; otherwise pertinent to relevant topics and without any delusional content, paranoid ideations or grandiosity; intermittent passive wish; positive SI/HI. There is no evidence of perceptual disturbance. Patients insight and judgment are impaired but improving. Diagnostics Vital Signs (24Hr): Vital Signs - 24 hr 08/16/22 13:00 08/16/22 18:00 08/17/22 09:14 Temperature 98.3 F 97.9 F 98.1 F Pulse Rate 72 79 95 Respiratory Rate 16 16 16 Blood Pressure 172/80 H 174/81 H 150/70 H Pulse Oximetry 96 97 98 Oxygen Delivery Method Room Air Room Air Room Air BMI result Body Mass Index 30.9 Labs 08/09/22 14:06 08/09/22 14:06 Medications Medications Current Medications Acetaminophen (Acetaminophen 325 Mg Tablet) 650 mg PO Q6H PRN PRN Reason: Headache/Pain Mild Scale (1-3) Al Hydroxide/Mg Hydroxide (Magnesium Hydrox/Alum Hydrox 30 Ml Oral.Susp) 30 ml PO Q6H PRN PRN Reason: Heartburn/Nausea Bupropion HCl (Bupropion Hcl Xl 300 Mg Tab.Er.24h) 300 mg PO DAILY [facility] Last Admin: 08/17/22 09:17 Dose: 300 mg Clonidine HCl (Clonidine Hcl 0.1 Mg Tablet) 0.1 mg PO Q4H PRN; Protocol PRN Reason: Anxiety Clonidine HCl (Clonidine Hcl 0.2 Mg Tablet) 0.2 mg PO TID [facility]; Protocol Last Admin: 08/17/22 09:17 Dose: 0.2 mg Fluoxetine HCl (Fluoxetine Hcl 20 Mg Capsule) 20 mg PO DAILY [facility] Last Admin: 08/17/22 09:17 Dose: 20 mg Magnesium Hydroxide (Milk Of Magnesia 30 Ml Oral.Susp) 30 ml PO DAILY PRN PRN Reason: Constipation Magnesium Oxide (Magnesium Oxide 400 Mg Tablet) 200 mg PO DAILY [facility] Last Admin: 08/17/22 09:17 Dose: 200 mg Melatonin (Melatonin 3 Mg Tablet) 3 mg PO BEDTIME [facility] Last Admin: 08/16/22 20:31 Dose: 3 mg Melatonin (Melatonin 3 Mg Tablet) 3 mg PO BEDTIME PRN PRN Reason: continued insomnia upto 4am Last Admin: 08/17/22 00:55 Dose: 3 mg Nicotine Polacrilex (Nicotine Polacrilex 2 Mg Gum) 4 mg BUCCAL Q2H PRN PRN Reason: Nicotine Cravings Pat Own Med ( Potassium Citrate 99 Mg Capsule) 99 mg PO DAILY [facility] Last Admin: 08/17/22 09:16 Dose: 99 mg Trazodone HCl (Trazodone Hcl 50 Mg Tablet) 50 mg PO BEDTIME MRX1 PRN PRN Reason: Insomnia Allergies Allergies Allergy/AdvReac Type Severity Reaction Status Date / Time No Known Allergies Allergy Verified 08/09/22 14:16 Assessment & Plan Assessment & Plan (1) Major depressive disorder, recurrent severe without psychotic features: Status: Acute Code(s): F33.2 - Major depressive disorder, recurrent severe without psychotic features (2) Chronic post-traumatic stress disorder (PTSD): Status: Acute Code(s): F43.12 - Post-traumatic stress disorder, chronic 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 -pt has MDD, PTSD; unprocessed trauma and depression slowly worsened mood over years; was recently started on low dose of Wellbutrin and agrees to increase dose to see if effective -passive wish but ultimately hopeful to overcome symptoms and recover; wants to engage in therapy -Htn: says failed Losartan, amlodipine, thiazide; will start Clonidine PLAN: CV Q15 Increased to Prozac 20 mg daily Continue Wellbutrin XL to 450mg daily (and switched from SR) Clonidine 0.1mg bid for HTN seek collateral after care planning 08/11: Continue current plan of care. 08/12: Add midday dose of Clonidine. Otherwise continue same treatment plan. 08/13: depressed; no improvement in mood; increase wellbuttin 08/14 pt shared hx of anxiety/fearfulness; Discussed meds and pt agrees to start Prozac given ptsd/anxiety and that wellbutrin not seemingly effective; will continue Wellbutrin for now but if Prozac proves helpful, will likely taper and dc 08/15 SI this morning later on the day resolved; agrees to increase Prozac to 20 mg; will continue with Wellbutrin for now. Patient engaged in treatment and gain perspective on her self which is helping her pursues emotional stability 08/16 patient remains very engaged in treatment and pushing herself to examine her thoughts and feelings; using CBT skills that she is learning during admission. Patient's most prominent symptom is anxiety which over time produced depression; will continue with Prozac 20 mg. Debated whether to taper down Wellbutrin but given the fact that patient became severely decompensated, decided to continue both medications for now and that once an outpatient, demonstrating consistent stability, can then see if monotherapy is adequate. Currently no side effects -blood pressure remains elevated; will see if patient is willing to start hydralazine 08/17 patient remains struggling with depression and overwhelming anxious thoughts that L to becoming hopeless. Some regressed behaviors Patient educated on: diagnosis, medication risk/benefits and therapeutic strategies Informed Consent: understands and further education needed Reason for continued inpatient stay Substantial Risk for: rapid decompensation Time Spent With Patient Time: Total time managing care of this patient today ____ minutes.
[2022-08-17 18:00] VITALS: BP 169/86; PULSE 85; RESP 16; TEMP 36.4; O2SAT 97
[2022-08-18] MEDS: Melatonin 3 MG TABLET PO (00:05)
[2022-08-18] MEDS: cloNIDine HCL 0.2 MG TABLET PO ×3 (08:52→21:59)
[2022-08-18] MEDS: Magnesium Oxide 400 MG TABLET 200 MG PO (08:53)
[2022-08-18] MEDS: FLUoxetine HCl 20 MG CAPSULE PO (08:53)
[2022-08-18] MEDS: buPROPion HCl XL 300 MG TAB.ER.24H PO (08:53)
--- NOTE | 2022-08-18 11:12 | P.PNPSI_ITS ---
Subjective Subjective Date of Service: 08/18/22 Reason For Visit: depression/ si Interim History: met with patient; discussed with team Patient reports poor sleep last night; some anxiety about taking trazodone but says she will try tonight after medication education discussion. Patient said discussion yesterday about her being trapped for the past 50 years deeply resonate with her and that it was both overwhelming and relieving to consider. Also discussed regressed perception about dealing with problems and how now that she is an adult, the idea of being alone is not quite as scary as it was when she was a child. Reviewed BP; patient agreed to try propranolol which can help with both blood pressure and anxiety Mental Status Exam Mental Status Exam Narrative: Pt is alert and oriented; behavior is cooperative, friendly and calm; patient is not in distress; dressed in casual attire with unkempt hair but adequate hygiene; mood is described as okay and affect congruent; eye contact appropriate; Speech is normal rate, volume and prosody and not pressured; no psychomotor agitation/retardation present; thought process is organized and goal directed; Thought content is on processing life experiences, on tx; otherwise pertinent to relevant topics and without any delusional content, paranoid ideations or grandiosity; intermittent passive wish; positive SI/HI. There is no evidence of perceptual disturbance. Patients insight and judgment are impaired but improving. Diagnostics Vital Signs (24Hr): Vital Signs - 24 hr 08/17/22 18:00 Temperature 97.6 F Pulse Rate 85 Respiratory Rate 16 Blood Pressure 169/86 H Pulse Oximetry 97 Oxygen Delivery Method Room Air BMI result Body Mass Index 30.9 Labs 08/09/22 14:06 08/09/22 14:06 Medications Medications Current Medications Acetaminophen (Acetaminophen 325 Mg Tablet) 650 mg PO Q6H PRN PRN Reason: Headache/Pain Mild Scale (1-3) Al Hydroxide/Mg Hydroxide (Magnesium Hydrox/Alum Hydrox 30 Ml Oral.Susp) 30 ml PO Q6H PRN PRN Reason: Heartburn/Nausea Bupropion HCl (Bupropion Hcl Xl 300 Mg Tab.Er.24h) 300 mg PO DAILY [facility] Last Admin: 08/18/22 08:53 Dose: 300 mg Clonidine HCl (Clonidine Hcl 0.1 Mg Tablet) 0.1 mg PO Q4H PRN; Protocol PRN Reason: Anxiety Clonidine HCl (Clonidine Hcl 0.2 Mg Tablet) 0.2 mg PO TID [facility]; Protocol Last Admin: 08/18/22 08:52 Dose: 0.2 mg Fluoxetine HCl (Fluoxetine Hcl 20 Mg Capsule) 20 mg PO DAILY [facility] Last Admin: 08/18/22 08:53 Dose: 20 mg Magnesium Hydroxide (Milk Of Magnesia 30 Ml Oral.Susp) 30 ml PO DAILY PRN PRN Reason: Constipation Magnesium Oxide (Magnesium Oxide 400 Mg Tablet) 200 mg PO DAILY [facility] Last Admin: 08/18/22 08:53 Dose: 200 mg Melatonin (Melatonin 3 Mg Tablet) 3 mg PO BEDTIME [facility] Last Admin: 08/17/22 21:21 Dose: 3 mg Melatonin (Melatonin 3 Mg Tablet) 3 mg PO BEDTIME PRN PRN Reason: continued insomnia upto 4am Last Admin: 08/18/22 00:05 Dose: 3 mg Nicotine Polacrilex (Nicotine Polacrilex 2 Mg Gum) 4 mg BUCCAL Q2H PRN PRN Reason: Nicotine Cravings Pat Own Med ( Potassium Citrate 99 Mg Capsule) 99 mg PO DAILY [facility] Last Admin: 08/18/22 08:52 Dose: 99 mg Trazodone HCl (Trazodone Hcl 50 Mg Tablet) 50 mg PO BEDTIME MRX1 PRN PRN Reason: Insomnia Allergies Allergies Allergy/AdvReac Type Severity Reaction Status Date / Time No Known Allergies Allergy Verified 08/09/22 14:16 Assessment & Plan Assessment & Plan (1) Major depressive disorder, recurrent severe without psychotic features: Status: Acute Code(s): F33.2 - Major depressive disorder, recurrent severe without psychotic features (2) Chronic post-traumatic stress disorder (PTSD): Status: Acute Code(s): F43.12 - Post-traumatic stress disorder, chronic 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 -pt has MDD, PTSD; unprocessed trauma and depression slowly worsened mood over years; was recently started on low dose of Wellbutrin and agrees to increase dose to see if effective -passive wish but ultimately hopeful to overcome symptoms and recover; wants to engage in therapy -Htn: says failed Losartan, amlodipine, thiazide; will start Clonidine PLAN: CV Q15 Added Propranol IR 10mg once; if tolerates will start long acting for both anxie ty and HTN Trazodone 25 mg q.h.s. p.r.n. Continue Prozac 20 mg daily Lowered to Wellbutrin XL to 300mg daily; not sure if effective and could be contributing to HTN Clonidine 0.1mg bid for HTN seek collateral after care planning 08/11: Continue current plan of care. 08/12: Add midday dose of Clonidine. Otherwise continue same treatment plan. 08/13: depressed; no improvement in mood; increase wellbuttin 08/14 pt shared hx of anxiety/fearfulness; Discussed meds and pt agrees to start Prozac given ptsd/anxiety and that wellbutrin not seemingly effective; will continue Wellbutrin for now but if Prozac proves helpful, will likely taper and dc 08/15 SI this morning later on the day resolved; agrees to increase Prozac to 20 mg; will continue with Wellbutrin for now. Patient engaged in treatment and gain perspective on her self which is helping her pursues emotional stability 08/16 patient remains very engaged in treatment and pushing herself to examine her thoughts and feelings; using CBT skills that she is learning during admission. Patient's most prominent symptom is anxiety which over time produced depression; will continue with Prozac 20 mg. Debated whether to taper down Wellbutrin but given the fact that patient became severely decompensated, decided to continue both medications for now and that once an outpatient, demonstrating consistent stability, can then see if monotherapy is adequate. Currently no side effects -blood pressure remains elevated; will see if patient is willing to start hydralazine 08/17 patient remains struggling with depression and overwhelming anxious t houghts that L to becoming hopeless. Some regressed behaviors 08/18 added propranolol to see if can help with both blood pressure and anxiety; otherwise patient remains engaged and working through depression and anxiety. Patient educated on: diagnosis, medication risk/benefits and therapeutic strategies Informed Consent: understands Reason for continued inpatient stay Substantial Risk for: rapid decompensation and med/psych decompensation Time Spent With Patient Time: Total time managing care of this patient today ____ minutes.
[2022-08-18 11:30] VITALS: BP 134/68; PULSE 69; RESP 16
[2022-08-18] MEDS: Propranolol HCL 10 MG TABLET PO (11:32)
[2022-08-18 13:00] VITALS: BP 169/79; PULSE 67; RESP 16; TEMP 36.1
[2022-08-18 21:55] VITALS: BP 158/72; PULSE 64; TEMP 36.6; O2SAT 98
[2022-08-18] MEDS: traZODone HCL 25 MG HALFTAB PO (21:59)
[2022-08-19] MEDS: Melatonin 3 MG TABLET PO ×2 (02:26→23:00)
[2022-08-19] MEDS: traZODone HCL 25 MG HALFTAB PO ×2 (02:26→23:01)
[2022-08-19 08:40] VITALS: BP 173/81; PULSE 61; RESP 16; TEMP 36.8; O2SAT 98; O2SAT 99
[2022-08-19] MEDS: buPROPion HCl XL 300 MG TAB.ER.24H PO (08:43)
[2022-08-19] MEDS: FLUoxetine HCl 20 MG CAPSULE PO (08:43)
[2022-08-19] MEDS: cloNIDine HCL 0.2 MG TABLET PO ×3 (08:43→23:01)
[2022-08-19] MEDS: Magnesium Oxide 400 MG TABLET 200 MG PO (08:43)
--- NOTE | 2022-08-19 12:05 | HO.PSYCHPN ---
Subjective Subjective Date of Service: 08/19/22 Reason For Visit: depression/ si Interim History: Met with patient; discussed with team Patient reports she continues to struggle with depression and quickly gets deeply depression anxious with self-deprecating thoughts; agrees to increase Prozac to 40 mg, preferring not to risk being underdosed. Agrees to start propranolol Trazodone 25 mg with repeat dose is working well Mental Status Exam Mental Status Exam Narrative: Pt is alert and oriented; behavior is cooperative, friendly and calm; patient is not in distress; dressed in casual attire with unkempt hair but adequate hygiene; mood is described as okay and affect congruent; eye contact appropriate; Speech is normal rate, volume and prosody and not pressured; no psychomotor agitation/retardation present; thought process is organized and goal directed; Thought content is on processing life experiences, on tx; otherwise pertinent to relevant topics and without any delusional content, paranoid ideations or grandiosity; intermittent passive wish; positive SI/HI. There is no evidence of perceptual disturbance. Patients insight and judgment are impaired but improving. Diagnostics Vital Signs (24Hr): Vital Signs - 24 hr 08/18/22 13:00 08/18/22 21:55 08/19/22 08:40 Temperature 97 F 97.8 F 98.3 F Pulse Rate 67 64 61 Respiratory Rate 16 16 Blood Pressure 169/79 H 158/72 H 173/81 H Pulse Oximetry 98 99 Oxygen Delivery Method Room Air 08/19/22 08:40 Temperature 98.3 F Pulse Rate 61 Respiratory Rate 16 Blood Pressure 173/81 H Pulse Oximetry 98 Oxygen Delivery Method Room Air BMI result Body Mass Index 30.9 Labs 08/09/22 14:06 08/09/22 14:06 Medications Medications Current Medications Acetaminophen (Acetaminophen 325 Mg Tablet) 650 mg PO Q6H PRN PRN Reason: Headache/Pain Mild Scale (1-3) Al Hydroxide/Mg Hydroxide (Magnesium Hydrox/Alum Hydrox 30 Ml Oral.Susp) 30 ml PO Q6H PRN PRN Reason: Heartburn/Nausea Bupropion HCl (Bupropion Hcl Xl 300 Mg Tab.Er.24h) 300 mg PO DAILY [facility] Last Admin: 08/19/22 08:43 Dose: 300 mg Clonidine HCl (Clonidine Hcl 0.1 Mg Tablet) 0.1 mg PO Q4H PRN; Protocol PRN Reason: Anxiety Clonidine HCl (Clonidine Hcl 0.2 Mg Tablet) 0.2 mg PO TID [facility]; Protocol Last Admin: 08/19/22 08:43 Dose: 0.2 mg Fluoxetine HCl (Fluoxetine Hcl 20 Mg Capsule) 20 mg PO DAILY [facility] Last Admin: 08/19/22 08:43 Dose: 20 mg Magnesium Hydroxide (Milk Of Magnesia 30 Ml Oral.Susp) 30 ml PO DAILY PRN PRN Reason: Constipation Magnesium Oxide (Magnesium Oxide 400 Mg Tablet) 200 mg PO DAILY [facility] Last Admin: 08/19/22 08:43 Dose: 200 mg Melatonin (Melatonin 3 Mg Tablet) 3 mg PO BEDTIME [facility] Last Admin: 08/18/22 22:01 Dose: Not Given Melatonin (Melatonin 3 Mg Tablet) 3 mg PO BEDTIME PRN PRN Reason: continued insomnia upto 4am Last Admin: 08/19/22 02:26 Dose: 3 mg Nicotine Polacrilex (Nicotine Polacrilex 2 Mg Gum) 4 mg BUCCAL Q2H PRN PRN Reason: Nicotine Cravings Pat Own Med ( Potassium Citrate 99 Mg Capsule) 99 mg PO DAILY [facility] Last Admin: 08/19/22 08:43 Dose: 99 mg Propranolol HCl (Propranolol Hcl 10 Mg Tablet) 10 mg PO TID PRN; Protocol PRN Reason: for SBP>165 or DBP>100 Trazodone HCl (Trazodone Hcl 25 Mg Halftab) 25 mg PO BEDTIME MRX1 PRN PRN Reason: Insomnia Last Admin: 08/19/22 02:26 Dose: 25 mg Allergies Allergies Allergy/AdvReac Type Severity Reaction Status Date / Time No Known Allergies Allergy Verified 08/09/22 14:16 Assessment & Plan Assessment & Plan (1) Major depressive disorder, recurrent severe without psychotic features: Status: Acute Code(s): F33.2 - Major depressive disorder, recurrent severe without psychotic features (2) Chronic post-traumatic stress disorder (PTSD): Status: Acute Code(s): F43.12 - Post-traumatic stress disorder, chronic 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 -pt has MDD, PTSD; unprocessed trauma and depression slowly worsened mood over years; was recently started on low dose of Wellbutrin and agrees to increase dose to see if effective -passive wish but ultimately hopeful to overcome symptoms and recover; wants to engage in therapy -Htn: says failed Losartan, amlodipine, thiazide; will start Clonidine PLAN: CV Q15 Start propranolol LA 60 mg daily for combination of anxiety and hypertension Trazodone 25 mg q.h.s. p.r.n. Increase to Prozac 40 mg daily Lowered to Wellbutrin XL to 300mg daily; not sure if effective and could be contributing to HTN Clonidine 0.1mg bid for HTN seek collateral after care planning 08/11: Continue current plan of care. 08/12: Add midday dose of Clonidine. Otherwise continue same treatment plan. 08/13: depressed; no improvement in mood; increase wellbuttin 08/14 pt shared hx of anxiety/fearfulness; Discussed meds and pt agrees to start Prozac given ptsd/anxiety and that wellbutrin not seemingly effective; will continue Wellbutrin for now but if Prozac proves helpful, will likely taper and dc 08/15 SI this morning later on the day resolved; agrees to increase Prozac to 20 mg; will continue with Wellbutrin for now. Patient engaged in treatment and gain perspective on her self which is helping her pursues emotional stability 08/16 patient remains very engaged in treatment and pushing herself to examine her thoughts and feelings; using CBT skills that she is learning during admission. Patient's most prominent symptom is anxiety which over time produced depression; will continue with Prozac 20 mg. Debated whether to taper down Wellbutrin but given the fact that patient became severely decompensated, decided to continue both medications for now and that once an outpatient, demonstrating consistent stability, can then see if monotherapy is adequate. Currently no side effects -blood pressure remains elevated; will see if patient is willing to start hydralazine 08/17 patient remains struggling with depression and overwhelming anxious thoughts that L to becoming hopeless. Some regressed behaviors 08/18 added propranolol to see if can help with both blood pressure and anxiety; otherwise patient remains engaged and working through depression and anxiety. 08/19 remains prone to getting very depressed due to thoughts; does not seem to be OCD but will explore further; agrees to increase Prozac to 40 mg, patient not wanting to risk being underdosed; agrees to start propranolol long-acting Patient educated on: diagnosis, medication risk/benefits and medical condition Informed Consent: understands Reason for continued inpatient stay Substantial Risk for: rapid decompensation and med/psych decompensation Time Spent With Patient Time: Total time managing care of this patient today ____ minutes.
[2022-08-19 12:53] VITALS: BP 159/81; RESP 16
[2022-08-19] MEDS: Propranolol HCL 10 MG TABLET PO (13:11)
[2022-08-19 14:11] VITALS: BP 129/58; RESP 16
[2022-08-19 15:00] VITALS: BP 146/68; RESP 16
[2022-08-19] MEDS: FLUoxetine HCl 10 MG CAPSULE PO (16:58)
[2022-08-20 08:49] VITALS: BP 145/69; PULSE 68; RESP 16; TEMP 36.6; O2SAT 97
[2022-08-20] MEDS: buPROPion HCl XL 300 MG TAB.ER.24H PO (08:58)
[2022-08-20] MEDS: cloNIDine HCL 0.2 MG TABLET PO ×2 (08:58→15:16)
[2022-08-20] MEDS: Magnesium Oxide 400 MG TABLET 200 MG PO (08:58)
[2022-08-20] MEDS: Propranolol HCL LA 60 MG CAP.SA.24H PO (08:58)
[2022-08-20] MEDS: FLUoxetine HCl 20 MG CAPSULE 40 MG PO (08:58)
--- NOTE | 2022-08-20 09:40 | HO.PSYCHPN ---
Subjective Subjective Date of Service: 08/20/22 Reason For Visit: depression/ si Interim History: Met with patient; discussed with team Patient feeling a little better today. Sister present who corroborates patient's childhood traumatic experience and highlights her own battles dealing with trauma from growing up with mother and father. Patient reports sleeping better; continues to explore how her anxiety over the years has resulted in depression. Also given herself permission to be angry at her parents, something she has never done before. Patient sister gave a list of medications that were helpful for her over the years which include Lamictal, Geodon, Lexapro Mental Status Exam Mental Status Exam Narrative: Pt is alert and oriented; behavior is cooperative, friendly and calm; patient is not in distress; dressed in casual attire with unkempt hair but adequate hygiene; mood is described as little better and affect congruent; eye contact appropriate; Speech is normal rate, volume and prosody and not pressured; no psychomotor agitation/retardation present; thought process is organized and goal directed; Thought content is on processing life experiences, on tx; otherwise pertinent to relevant topics and without any delusional content, paranoid ideations or grandiosity; no SI/HI. There is no evidence of perceptual disturbance. Patients insight and judgment are impaired but improving. Diagnostics Vital Signs (24Hr): Vital Signs - 24 hr 08/19/22 12:53 08/19/22 14:11 08/19/22 15:00 Respiratory Rate 16 16 16 Blood Pressure 159/81 H 129/58 L 146/68 H BMI result Body Mass Index 30.9 Labs 08/09/22 14:06 08/09/22 14:06 Medications Medications Current Medications Acetaminophen (Acetaminophen 325 Mg Tablet) 650 mg PO Q6H PRN PRN Reason: Headache/Pain Mild Scale (1-3) Al Hydroxide/Mg Hydroxide (Magnesium Hydrox/Alum Hydrox 30 Ml Oral.Susp) 30 ml PO Q6H PRN PRN Reason: Heartburn/Nausea Bupropion HCl (Bupropion Hcl Xl 300 Mg Tab.Er.24h) 300 mg PO DAILY [facility] Last Admin: 08/20/22 08:58 Dose: 300 mg Clonidine HCl (Clonidine Hcl 0.1 Mg Tablet) 0.1 mg PO Q4H PRN; Protocol PRN Reason: Anxiety Clonidine HCl (Clonidine Hcl 0.2 Mg Tablet) 0.2 mg PO TID [facility]; Protocol Last Admin: 08/20/22 08:58 Dose: 0.2 mg Fluoxetine HCl (Fluoxetine Hcl 20 Mg Capsule) 40 mg PO DAILY [facility] Last Admin: 08/20/22 08:58 Dose: 40 mg Magnesium Hydroxide (Milk Of Magnesia 30 Ml Oral.Susp) 30 ml PO DAILY PRN PRN Reason: Constipation Magnesium Oxide (Magnesium Oxide 400 Mg Tablet) 200 mg PO DAILY [facility] Last Admin: 08/20/22 08:58 Dose: 200 mg Melatonin (Melatonin 3 Mg Tablet) 3 mg PO BEDTIME [facility] Last Admin: 08/19/22 23:00 Dose: 3 mg Melatonin (Melatonin 3 Mg Tablet) 3 mg PO BEDTIME PRN PRN Reason: continued insomnia upto 4am Last Admin: 08/19/22 02:26 Dose: 3 mg Nicotine Polacrilex (Nicotine Polacrilex 2 Mg Gum) 4 mg BUCCAL Q2H PRN PRN Reason: Nicotine Cravings Pat Own Med ( Potassium Citrate 99 Mg Capsule) 99 mg PO DAILY [facility] Last Admin: 08/20/22 08:57 Dose: 99 mg Propranolol HCl (Propranolol Hcl La 60 Mg Cap.Sa.24h) 60 mg PO DAILY [facility]; Protocol Last Admin: 08/20/22 08:58 Dose: 60 mg Trazodone HCl (Trazodone Hcl 25 Mg Halftab) 25 mg PO BEDTIME MRX1 PRN PRN Reason: Insomnia Last Admin: 08/19/22 23:01 Dose: 25 mg Allergies Allergies Allergy/AdvReac Type Severity Reaction Status Date / Time No Known Allergies Allergy Verified 08/09/22 14:16 Assessment & Plan Assessment & Plan (1) Major depressive disorder, recurrent severe without psychotic features: Status: Acute Code(s): F33.2 - Major depressive disorder, recurrent severe without psychotic features (2) Chronic post-traumatic stress disorder (PTSD): Status: Acute Code(s): F43.12 - Post-traumatic stress disorder, chronic 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 -pt has MDD, PTSD; unprocessed trauma and depression slowly worsened mood over years; was recently started on low dose of Wellbutrin and agrees to increase dose to see if effective -passive wish but ultimately hopeful to overcome symptoms and recover; wants to engage in therapy -Htn: says failed Losartan, amlodipine, thiazide; will start Clonidine PLAN: CV Q15 Start propranolol LA 60 mg daily for combination of anxiety and hypertension Trazodone 25 mg q.h.s. p.r.n. Increase to Prozac 40 mg daily Lowered to Wellbutrin XL to 300mg daily; not sure if effective and could be contributing to HTN Clonidine 0.1mg bid for HTN seek collateral after care planning 08/11: Continue current plan of care. 08/12: Add midday dose of Clonidine. Otherwise continue same treatment plan. 08/13: depressed; no improvement in mood; increase wellbuttin 08/14 pt shared hx of anxiety/fearfulness; Discussed meds and pt agrees to start Prozac given ptsd/anxiety and that wellbutrin not seemingly effective; will continue Wellbutrin for now but if Prozac proves helpful, will likely taper and dc 08/15 SI this morning later on the day resolved; agrees to increase Prozac to 20 mg; will continue with Wellbutrin for now. Patient engaged in treatment and gain perspective on her self which is helping her pursues emotional stability 08/16 patient remains very engaged in treatment and pushing herself to examine her thoughts and feelings; using CBT skills that she is learning during admission. Patient's most prominent symptom is anxiety which over time produced depression; will continue with Prozac 20 mg. Debated whether to taper down Wellbutrin but given the fact that patient became severely decompensated, decided to continue both medications for now and that once an outpatient, demonstrating consistent stability, can then see if monotherapy is adequate. Currently no side effects -blood pressure remains elevated; will see if patient is willing to start hydralazine 08/17 patient remains struggling with depression and overwhelming anxious thoughts that L to becoming hopeless. Some regressed behaviors 08/18 added propranolol to see if can help with both blood pressure and anxiety; otherwise patient remains engaged and working through depression and anxiety. 08/19 remains prone to getting very depressed due to thoughts; does not seem to be OCD but will explore further; agrees to increase Prozac to 40 mg, patient not wanting to risk being underdosed; agrees to start propranolol long-acting 08/20 seems to be little better today, able to process negative thoughts/feelings on her own with more success; slept better Patient educated on: diagnosis, medication risk/benefits and therapeutic strategies Informed Consent: understands Reason for continued inpatient stay Substantial Risk for: med/psych decompensation Time Spent With Patient Time: Total time managing care of this patient today ____ minutes.
[2022-08-20 15:14] VITALS: BP 127/56
[2022-08-20 22:40] VITALS: BP 130/62; PULSE 52; TEMP 35.9; O2SAT 95
[2022-08-20] MEDS: Melatonin 3 MG TABLET PO (22:59)
[2022-08-20] MEDS: traZODone HCL 25 MG HALFTAB PO (22:59)
[2022-08-21] MEDS: buPROPion HCl XL 300 MG TAB.ER.24H PO (08:24)
[2022-08-21] MEDS: Propranolol HCL LA 60 MG CAP.SA.24H PO (08:24)
[2022-08-21] MEDS: FLUoxetine HCl 20 MG CAPSULE 40 MG PO (08:25)
[2022-08-21] MEDS: Magnesium Oxide 400 MG TABLET 200 MG PO (08:25)
[2022-08-21] MEDS: cloNIDine HCL 0.2 MG TABLET PO ×3 (08:25→22:06)
[2022-08-21 08:28] VITALS: BP 146/78; PULSE 60; RESP 18; O2SAT 96
--- NOTE | 2022-08-21 09:54 | P.PNPSI_ITS ---
Subjective Subjective Date of Service: 08/21/22 Reason For Visit: depression/ si Interim History: Met with patient; discussed with team Patient feeling better today; still anxious but more optimistic about being able to handle the challenges. Did not sleep well last night but did not take repeat trazodone. Patient did feel some excessive restlessness when she woke up this morning but that was before medications and resolved on its own. She agrees to continue current treatment plan. Patient feeling as though she is getting ready for discharge Mental Status Exam Mental Status Exam Narrative: Pt is alert and oriented; behavior is cooperative, friendly and calm; patient is not in distress; dressed in casual attire with unkempt hair but adequate hygiene; mood is described as little better and affect congruent; eye contact appropriate; Speech is normal rate, volume and prosody and not pressured; no psychomotor agitation/retardation present; thought process is organized and goal directed; Thought content is on processing life experiences, on tx; otherwise pertinent to relevant topics and without any delusional content, paranoid ideations or grandiosity; no SI/HI. There is no evidence of perceptual disturbance. Patients insight and judgment are fair Diagnostics Vital Signs (24Hr): Vital Signs - 24 hr 08/20/22 15:14 08/20/22 22:40 08/21/22 08:28 Temperature 96.6 F L Pulse Rate 52 60 Respiratory Rate 18 Blood Pressure 127/56 L 130/62 146/78 H Pulse Oximetry 95 96 Oxygen Delivery Method Room Air Room Air BMI result Body Mass Index 30.9 Labs 08/09/22 14:06 08/09/22 14:06 Medications Medications Current Medications Acetaminophen (Acetaminophen 325 Mg Tablet) 650 mg PO Q6H PRN PRN Reason: Headache/Pain Mild Scale (1-3) Al Hydroxide/Mg Hydroxide (Magnesium Hydrox/Alum Hydrox 30 Ml Oral.Susp) 30 ml PO Q6H PRN PRN Reason: Heartburn/Nausea Bupropion HCl (Bupropion Hcl Xl 300 Mg Tab.Er.24h) 300 mg PO DAILY [facility] Last Admin: 08/21/22 08:24 Dose: 300 mg Clonidine HCl (Clonidine Hcl 0.1 Mg Tablet) 0.1 mg PO Q4H PRN; Protocol PRN Reason: Anxiety Clonidine HCl (Clonidine Hcl 0.2 Mg Tablet) 0.2 mg PO TID [facility]; Protocol Last Admin: 08/21/22 08:25 Dose: 0.2 mg Fluoxetine HCl (Fluoxetine Hcl 20 Mg Capsule) 40 mg PO DAILY [facility] Last Admin: 08/21/22 08:25 Dose: 40 mg Magnesium Hydroxide (Milk Of Magnesia 30 Ml Oral.Susp) 30 ml PO DAILY PRN PRN Reason: Constipation Magnesium Oxide (Magnesium Oxide 400 Mg Tablet) 200 mg PO DAILY [facility] Last Admin: 08/21/22 08:25 Dose: 200 mg Melatonin (Melatonin 3 Mg Tablet) 3 mg PO BEDTIME [facility] Last Admin: 08/20/22 22:59 Dose: 3 mg Melatonin (Melatonin 3 Mg Tablet) 3 mg PO BEDTIME PRN PRN Reason: continued insomnia upto 4am Last Admin: 08/19/22 02:26 Dose: 3 mg Nicotine Polacrilex (Nicotine Polacrilex 2 Mg Gum) 4 mg BUCCAL Q2H PRN PRN Reason: Nicotine Cravings Pat Own Med ( Potassium Citrate 99 Mg Capsule) 99 mg PO DAILY [facility] Last Admin: 08/21/22 08:25 Dose: 99 mg Propranolol HCl (Propranolol Hcl La 60 Mg Cap.Sa.24h) 60 mg PO DAILY [facility]; Protocol Last Admin: 08/21/22 08:24 Dose: 60 mg Trazodone HCl (Trazodone Hcl 25 Mg Halftab) 25 mg PO BEDTIME MRX1 PRN PRN Reason: Insomnia Last Admin: 08/20/22 22:59 Dose: 25 mg Allergies Allergies Allergy/AdvReac Type Severity Reaction Status Date / Time No Known Allergies Allergy Verified 08/09/22 14:16 Assessment & Plan Assessment & Plan (1) Major depressive disorder, recurrent severe without psychotic features: Status: Acute Code(s): F33.2 - Major depressive disorder, recurrent severe without psychotic features (2) Chronic post-traumatic stress disorder (PTSD): Status: Acute Code(s): F43.12 - Post-traumatic stress disorder, chronic 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 -pt has MDD, PTSD; unprocessed trauma and depression slowly worsened mood over years; was recently started on low dose of Wellbutrin and agrees to increase dose to see if effective -passive wish but ultimately hopeful to overcome symptoms and recover; wants to engage in therapy -Htn: says failed Losartan, amlodipine, thiazide; will start Clonidine PLAN: CV Q15 Start propranolol LA 60 mg daily for combination of anxiety and hypertension Trazodone 25 mg q.h.s. p.r.n. Increase to Prozac 40 mg daily Lowered to Wellbutrin XL to 300mg daily; not sure if effective and could be contributing to HTN Clonidine 0.1mg bid for HTN seek collateral after care planning 08/11: Continue current plan of care. 08/12: Add midday dose of Clonidine. Otherwise continue same treatment plan. 08/13: depressed; no improvement in mood; increase wellbuttin 08/14 pt shared hx of anxiety/fearfulness; Discussed meds and pt agrees to start Prozac given ptsd/anxiety and that wellbutrin not seemingly effective; will continue Wellbutrin for now but if Prozac proves helpful, will likely taper and dc 08/15 SI this morning later on the day resolved; agrees to increase Prozac to 20 mg; will continue with Wellbutrin for now. Patient engaged in treatment and gain perspective on her self which is helping her pursues emotional stability 08/16 patient remains very engaged in treatment and pushing herself to examine her thoughts and feelings; using CBT skills that she is learning during admission. Patient's most prominent symptom is anxiety which over time produced depression; will continue with Prozac 20 mg. Debated whether to taper down Wellbutrin but given the fact that patient became severely decompensated, decided to continue both medications for now and that once an outpatient, demonstrating consistent stability, can then see if monotherapy is adequate. Currently no side effects -blood pressure remains elevated; will see if patient is willing to start hydralazine 08/17 patient remains struggling with depression and overwhelming anxious thoughts that L to becoming hopeless. Some regressed behaviors 08/18 added propranolol to see if can help with both blood pressure and anxiety; otherwise patient remains engaged and working through depression and anxiety. 08/19 remains prone to getting very depressed due to thoughts; does not seem to be OCD but will explore further; agrees to increase Prozac to 40 mg, patient not wanting to risk being underdosed; agrees to start propranolol long-acting 08/20 seems to be little better today, able to process negative thoughts/feelings on her own with more success; slept better 08/21 continue current treatment plan; BP improved with propranolol Patient educated on: diagnosis, medication risk/benefits and medical condition Informed Consent: understands Reason for continued inpatient stay Substantial Risk for: stable for discharge Time Spent With Patient Time: Total time managing care of this patient today ____ minutes.
[2022-08-21 13:00] VITALS: BP 140/71; PULSE 61; RESP 18
[2022-08-21] MEDS: cloNIDine HCL 0.1 MG TABLET PO (17:46)
[2022-08-21 21:55] VITALS: BP 144/71; PULSE 60; TEMP 36.2; O2SAT 97
[2022-08-21] MEDS: traZODone HCL 25 MG HALFTAB PO (22:06)
[2022-08-21] MEDS: Melatonin 3 MG TABLET PO (22:07)
[2022-08-22 08:43] VITALS: BP 183/88; PULSE 61; RESP 16; TEMP 36.4; O2SAT 97
[2022-08-22] MEDS: buPROPion HCl XL 300 MG TAB.ER.24H PO (08:44)
[2022-08-22] MEDS: Propranolol HCL LA 60 MG CAP.SA.24H PO (08:44)
[2022-08-22] MEDS: FLUoxetine HCl 20 MG CAPSULE 40 MG PO (08:45)
[2022-08-22] MEDS: cloNIDine HCL 0.2 MG TABLET PO ×3 (08:45→22:19)
[2022-08-22] MEDS: Magnesium Oxide 400 MG TABLET 200 MG PO (08:45)
--- NOTE | 2022-08-22 09:55 | P.PNPSI_ITS ---
Subjective Subjective Date of Service: 08/22/22 Reason For Visit: depression/ si Interim History: Met with patient; discussed with team Patient overall feels better. She is quite anxious about discharge tomorrow however she feels that she will be able to handle it and says I half to.. That said, her anxiety about her post discharge life is making her quite anxious and she says she has been struggling through this for the past 4 months and is really wanting to start feeling better soon... She has a little worried that if current level of anxiety does not gabino, she may again start to feel hopeless.... Pt asked if she should be started on a neuroleptic since her sister has tried them for similar symptoms and benefited from both zyprexa and risperdal in past. industrial gas servicer helper discussed this potential option for dealing with ongoing anxiety as well as a possible trial of low dose benzo; discussed in detail the the different side-effects/risks verse potential benefits of both. Given side effect profile patient said she rather try a benzodiazepine; credit underwriter ordered clonazepam 0.25 mg 1 time dose to see its effect. Also discussed how to proceed with Wellbutrin, clonidine and propranolol and patient agrees to remain on these medications for now. Mental Status Exam Mental Status Exam Narrative: Pt is alert and oriented; behavior is cooperative, friendly and calm; patient is not in distress; dressed in casual attire with unkempt hair but adequate hygiene; mood is described as anxious and affect congruent; eye contact appropriate; Speech is normal rate, volume and prosody and not pressured; no psychomotor agitation/retardation present; thought process is organized and goal directed; Thought content is on processing life experiences, on tx; otherwise pertinent to relevant topics and without any delusional content, paranoid ideations or grandiosity; no SI/HI. There is no evidence of perceptual disturbance. Patients insight and judgment are fair Diagnostics Vital Signs (24Hr): Vital Signs - 24 hr 08/21/22 13:00 08/21/22 21:55 08/22/22 08:43 Temperature 97.1 F 97.5 F Pulse Rate 61 60 61 Respiratory Rate 18 16 Blood Pressure 140/71 H 144/71 H 183/88 H Pulse Oximetry 97 97 Oxygen Delivery Method Room Air Room Air BMI result Body Mass Index 30.9 Labs 08/09/22 14:06 08/09/22 14:06 Medications Medications Current Medications Acetaminophen (Acetaminophen 325 Mg Tablet) 650 mg PO Q6H PRN PRN Reason: Headache/Pain Mild Scale (1-3) Al Hydroxide/Mg Hydroxide (Magnesium Hydrox/Alum Hydrox 30 Ml Oral.Susp) 30 ml PO Q6H PRN PRN Reason: Heartburn/Nausea Bupropion HCl (Bupropion Hcl Xl 300 Mg Tab.Er.24h) 300 mg PO DAILY [facility] Last Admin: 08/22/22 08:44 Dose: 300 mg Clonidine HCl (Clonidine Hcl 0.1 Mg Tablet) 0.1 mg PO Q4H PRN; Protocol PRN Reason: Anxiety Last Admin: 08/21/22 17:46 Dose: 0.1 mg Clonidine HCl (Clonidine Hcl 0.2 Mg Tablet) 0.2 mg PO TID [facility]; Protocol Last Admin: 08/22/22 08:45 Dose: 0.2 mg Fluoxetine HCl (Fluoxetine Hcl 20 Mg Capsule) 40 mg PO DAILY [facility] Last Admin: 08/22/22 08:45 Dose: 40 mg Magnesium Hydroxide (Milk Of Magnesia 30 Ml Oral.Susp) 30 ml PO DAILY PRN PRN Reason: Constipation Magnesium Oxide (Magnesium Oxide 400 Mg Tablet) 200 mg PO DAILY [facility] Last Admin: 08/22/22 08:45 Dose: 200 mg Melatonin (Melatonin 3 Mg Tablet) 3 mg PO BEDTIME [facility] Last Admin: 08/21/22 22:07 Dose: 3 mg Melatonin (Melatonin 3 Mg Tablet) 3 mg PO BEDTIME PRN PRN Reason: continued insomnia upto 4am Last Admin: 08/19/22 02:26 Dose: 3 mg Nicotine Polacrilex (Nicotine Polacrilex 2 Mg Gum) 4 mg BUCCAL Q2H PRN PRN Reason: Nicotine Cravings Pat Own Med ( Potassium Citrate 99 Mg Capsule) 99 mg PO DAILY [facility] Last Admin: 08/22/22 08:47 Dose: 99 mg Propranolol HCl (Propranolol Hcl La 60 Mg Cap.Sa.24h) 60 mg PO DAILY [facility]; Protocol Last Admin: 08/22/22 08:44 Dose: 60 mg Trazodone HCl (Trazodone Hcl 25 Mg Halftab) 25 mg PO BEDTIME MRX1 PRN PRN Reason: Insomnia Last Admin: 08/21/22 22:06 Dose: 25 mg Allergies Allergies Allergy/AdvReac Type Severity Reaction Status Date / Time No Known Allergies Allergy Verified 08/09/22 14:16 Assessment & Plan Assessment & Plan (1) Major depressive disorder, recurrent severe without psychotic features: Status: Acute Code(s): F33.2 - Major depressive disorder, recurrent severe without psychotic features (2) Chronic post-traumatic stress disorder (PTSD): Status: Acute Code(s): F43.12 - Post-traumatic stress disorder, chronic 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 -pt has MDD, PTSD; unprocessed trauma and depression slowly worsened mood over years; was recently started on low dose of Wellbutrin and agrees to increase dose to see if effective -passive wish but ultimately hopeful to overcome symptoms and recover; wants to engage in therapy -Htn: says failed Losartan, amlodipine, thiazide; will start Clonidine PLAN: CV Q15 Start propranolol LA 60 mg daily for combination of anxiety and hypertension Trazodone 25 mg q.h.s. p.r.n. Increase to Prozac 40 mg daily Lowered to Wellbutrin XL to 300mg daily; not sure if effective and could be contributing to HTN Clonidine 0.1mg bid for HTN seek collateral after care planning 08/11: Continue current plan of care. 08/12: Add midday dose of Clonidine. Otherwise continue same treatment plan. 08/13: depressed; no improvement in mood; increase wellbuttin 08/14 pt shared hx of anxiety/fearfulness; Discussed meds and pt agrees to start Prozac given ptsd/anxiety and that wellbutrin not seemingly effective; will continue Wellbutrin for now but if Prozac proves helpful, will likely taper and dc 08/15 SI this morning later on the day resolved; agrees to increase Prozac to 20 mg; will continue with Wellbutrin for now. Patient engaged in treatment and gain perspective on her self which is helping her pursues emotional stability 08/16 patient remains very engaged in treatment and pushing herself to examine her thoughts and feelings; using CBT skills that she is learning during a dmission. Patient's most prominent symptom is anxiety which over time produced depression; will continue with Prozac 20 mg. Debated whether to taper down Wellbutrin but given the fact that patient became severely decompensated, decided to continue both medications for now and that once an outpatient, demonstrating consistent stability, can then see if monotherapy is adequate. Currently no side effects -blood pressure remains elevated; will see if patient is willing to start hydralazine 08/17 patient remains struggling with depression and overwhelming anxious thoughts that L to becoming hopeless. Some regressed behaviors 08/18 added propranolol to see if can help with both blood pressure and anxiety; otherwise patient remains engaged and working through depression and anxiety. 08/19 remains prone to getting very depressed due to thoughts; does not seem to be OCD but will explore further; agrees to increase Prozac to 40 mg, patient not wanting to risk being underdosed; agrees to start propranolol long-acting 08/20 seems to be little better today, able to process negative thoughts/feelings on her own with more success; slept better 08/21 continue current treatment plan; BP improved with propranolol 08/22 patient is doing better and more hopeful however she remains very anxious about handling her aftercare life. Airline Hostess had some concerns that her continued level of anxiety might prove problematic; while it is quite possible that Prozac 40 mg will continue to confer increasing benefit, it has yet to demonstrate that it is truly an effective medication for her. Airline Hostess has considered adding a low dose of Zyprexa or Risperdal, medications that benefited her sister and also entertained possibly adding a low-dose benzo has a temporary treatment for anxiety as medication regimen becomes hopefully therapeutic. Patient does have a time limited period where she was drinking alcohol to cope with her stress but it does not seem to have been excessive and she has not drank any alcohol for months. Both antipsychotic and benzos have their own potential risks and benefits. Discussed this at length with patient who ultimately decided that clonazepam has a less potential risks. Airline Hostess gave patient a 1 time dose of clonazepam 0.25 mg to see its effect. -patient remains very proactive and is trying hard to set up aftercare plans, including prescriber, therapist, hiring a application support administrator to be at home with her so she does not feel so alone and also a classroom paraprofessional to help her cleanup her house quickly to get on the market to sell Patient educated on: diagnosis, medication risk/benefits, substance abuse and therapeutic strategies Informed Consent: understands Reason for continued inpatient stay Substantial Risk for: stable for discharge Time Spent With Patient Time: Total time managing care of this patient today ____ minutes.
[2022-08-22 22:15] VITALS: BP 133/64; PULSE 60; TEMP 36.5
[2022-08-22] MEDS: Melatonin 3 MG TABLET PO (22:19)
[2022-08-22] MEDS: traZODone HCL 25 MG HALFTAB PO (22:19)
[2022-08-23 08:10] VITALS: BP 171/83; PULSE 57; RESP 18; TEMP 36.2; O2SAT 96
[2022-08-23] MEDS: FLUoxetine HCl 20 MG CAPSULE 40 MG PO (08:18)
[2022-08-23] MEDS: Propranolol HCL LA 60 MG CAP.SA.24H PO (08:18)
[2022-08-23] MEDS: cloNIDine HCL 0.2 MG TABLET PO (08:19)
[2022-08-23] MEDS: Magnesium Oxide 400 MG TABLET 200 MG PO (08:19)
[2022-08-23] MEDS: buPROPion HCl XL 300 MG TAB.ER.24H PO (08:19)
--- NOTE | 2022-08-23 10:38 | PM.PSYDC ---
DS: Providers Provider Date of Service: 08/23/22 Date of admission: 08/09/22 19:34 Date of discharge: 08/23/22 Primary care physician: Unknown Physician Attending physician on admission: Justin Meyer Attending physician on discharge: Justin Meyer DS: Diagnosis Discharge Diagnosis (1) Major depressive disorder, recurrent severe without psychotic features: Status: Acute (2) Chronic post-traumatic stress disorder (PTSD): Status: Acute DS: Medications Discharge Medications Home Medications: Previous Rx's Medication Instructions Recorded bupropion HCl 300 mg 24 hr tablet, 300 mg PO DAILY 30 days #30 tabs 08/23/22 extended release clonazepam 0.5 mg tablet 0.25 mg PO DAILY PRN panic 30 days 08/23/22 #10 tabs clonidine HCl 0.1 mg tablet 0.1 mg PO BID PRN Anxiety 30 days 08/23/22 #60 tabs clonidine HCl 0.2 mg tablet 0.2 mg PO TID 30 days #90 tabs 08/23/22 fluoxetine 40 mg capsule 40 mg PO DAILY 30 days #30 caps 08/23/22 magnesium 250 mg tablet 250 mg PO DAILY 30 days #30 tabs 08/23/22 melatonin 3 mg capsule See Rx Instructions .Route 08/23/22 .COMPLEX PRN Insomnia 30 days #60 caps potassium citrate 99 mg capsule 100 mg PO DAILY 30 days #31 caps 08/23/22 propranolol 60 mg capsule,24 60 mg PO DAILY 30 days #30 caps 08/23/22 hr,extended release trazodone 50 mg tablet See Rx Instructions .Route 08/23/22 .COMPLEX PRN insomnia 30 days #30 tabs Mental Status Exam Mental Status Exam Narrative: Pt is alert and oriented; behavior is cooperative, friendly and calm; patient is not in distress; dressed in casual attire with unkempt hair but adequate hygiene; mood is described as anxious and affect congruent; eye contact appropriate; Speech is normal rate, volume and prosody and not pressured; no psychomotor agitation/retardation present; thought process is organized and goal directed; Thought content is on processing life experiences, on tx; otherwise pertinent to relevant topics and without any delusional content, paranoid ideations or grandiosity; no SI/HI. There is no evidence of perceptual disturbance. 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 Pt dx with MDD, and PTSD from unprocessed trauma Hospital course: On admission patient was depressed though SI mostly resolved; initially her Wellbutrin was switched to long-acting XL and titrated to 450 mg daily. However with more discourse, became much more clear that patient's primary struggle was with anxiety with components of JOBY/PTSD (which were the likely the etiology for future depressive disorder). Because patient's anxiety was so prominent, she was started on Prozac. Debated whether not to taper off and discontinue the Wellbutrin however given the severity of her depression, decided to continue Wellbutrin for now as it may prove partially helpful (was eventually lowered to 300 mg). 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 Patient was very engaged in treatment, forthcoming in interviews and attending all groups; she engage in CBT exercises which she found revealing and eventually catheterization [place]. Patient's older sister who is very supportive and visited patient on the unit corroborated the numerous traumatic experiences they endured with their parents, helping patient feel validated in her struggles. With milieu therapy patient's depression abated and SI fully resolved; she remained anxious and prone to self-deprecating or pessimistic thoughts however she developed coping skills and was able to work through them on her own. Prozac was titrated to 40 mg and was well tolerated. For breakthrough panic attacks, patient was prescribed Clonazepam 0.25 mg with a enough for 1-3 doses per week; it was discussed that this is a temporary agent for panic and patient planned to use it sparingly. By the end of admission patient was doing better, depression mostly abated and patient had started to become hopeful again. She wanted to engage in outpatient therapy and appointments established. Patient felt ready for discharge and stable to continue treatment in the community. She was not in imminent risk for harm to self or others appropriate for discharge. -Despite tx and improved symptoms, pt remained anxious. Sheet Manufacturing Supervisor had some concerns that her continued level of anxiety might again become overwhelming and discouraging; while it is quite possible that Prozac 40 mg will continue to confer increasing benefit, it has yet to demonstrate that it is truly an effective medication for her.? Patient had similar concerns and asked about potentially being started on a neuroleptic which her sister recommended having benefited from both Zyprexa and Risperdal. Sheet Manufacturing Supervisor discussed the risks and side effects of these medications as well as the possibility of adding a p.r.n. low-dose benzo has a temporary treatment. Both antipsychotic and benzos have their own potential risks and benefits; after discussing this at length with patient ultimately decided that clonazepam has a less potential risks.? -Patient has significant hypertension which historically was difficult to treat (failed Losartan, amlodipine, thiazide, hydralazine). During admission, she was started on clonidine in combination with propranolol which helped a little; patient planned follow-up with PCP Time spent discussing smoking cessation with patient: 3 to 10 minutes Status at Discharge Functional status at discharge: independent ambulation Overall status at discharge: patient is progressing back to baseline Time Spent with Patient Time attestation: Total time managing care of this patient today ____ minutes. Time spent: Greater than 30 minutes Discharge Plan Discharge Anticipated Discharge Date/Time: 08/23/22 11:00 Patient Disposition: Home, Self-Care Discharge Diagnosis: MDD, recurrent, severe w/out psychotic features, in partial remission Referrals: Therapy Magan Martinez [Other] - 08/27/22 2:00 pm Medication Management Ana Pillai [Other] - [address] Jared Lane [Other] - 08/28/22 2:20 pm Paulette Gomez LAR[employer] SHEET[employer]ED PRESS OPERATOR [Physician Academic Support Specialist] - 11/20/22 1:40 pm (in office) Discharge Medications: New clonidine HCl 0.2 mg Tablet 0.2 mg PO TID 30 Days Qty: 90 2RF Protocol: Hold for SBP< HOLD for SBP < : 90 clonidine HCl 0.1 mg Tablet 0.1 mg PO BID PRN (Reason: Anxiety) 30 Days Qty: 60 1RF Protocol: Hold for SBP< HOLD for SBP < : 90 propranolol 60 mg Capsule,Extended Release 24 Hr 60 mg PO DAILY 30 Days Qty: 30 2RF Protocol: Hold for SBP/HR < HOLD for SBP < : 90 HOLD for HR < : 60 bupropion HCl 300 mg Tablet Extended Release 24 Hr 300 mg PO DAILY 30 Days Qty: 30 1RF fluoxetine 40 mg capsule 40 mg PO DAILY 30 Days Qty: 30 1RF trazodone 50 mg tablet See Rx Instructions .ROUTE .COMPLEX PRN (Reason: insomnia) 30 Days Qty: 30 1RF Rx Instructions: take 1/2 to 1 tablet at bedtime as needed for insomnia clonazepam 0.5 mg tablet 0.25 mg PO DAILY PRN (Reason: panic) 30 Days Qty: 10 0RF Continued magnesium 250 mg Tablet 250 mg PO DAILY 30 Days Qty: 30 0RF potassium citrate 99 mg Capsule 100 mg PO DAILY 30 Days Qty: 31 0RF Changed melatonin 3 mg Capsule See Rx Instructions .ROUTE .COMPLEX PRN (Reason: Insomnia) 30 Days Qty: 60 0RF Rx Instructions: take 1-2 capsules as needed for insomnia Discontinued bupropion HCl [Wellbutrin SR] 100 mg Tablet Sustained-Release 12 Hr 100 mg PO BID Rx Instructions: Pt reported taking 6mg last PM Discharge Orders: Discharge Order (Routine); Ordered 08/23/22 Ordered By: Justin Meyer Diet: Regular diet Activity on Discharge: As tolerated Stand Alone Forms: Patient Portal Discharge page, Community Support Care Plan Goals: Maintain mood and safe behaviors Take medications as prescribed Continue to pursue sobriety Practice coping skills Continue with outpatient providers and reach out to them as needed Health Concerns: Mood stability and behaviors Hypertension Plan of Treatment: Follow up with your PCP, psychiatric provider and other outpatient providers regarding above concerns Take medications as prescribed Assessment: Risk assessment at time of discharge:? Patient was interviewed prior to discharge and found to be fully oriented and without any SI or HI. Patient has insight and demonstrates good judgment in terms of wanting to pursue treatment. Patient is not in imminent risk of harm to self or others and has a safety plan that includes presenting to the closest ER or calling 911 if feeling unsafe.? Patient has been observed closely by nursing and unit staff throughout admission; patient has not engaged in any behaviors that suggest dangerousness to self or others and has demonstrated appropriate behaviors and impulse control Discharge Date/Time: 08/23/22 11:15
--- NOTE | 2022-08-24 14:31 | PM.EVENT ---
Documented by User: Cecy Vega APRN 08/24/22 14:34 Event Note Date of Service: 08/24/22 Event Note: Call from Vickie to [facility]. She is experiencing blurring of vision and wonders if this may be a side effect of Prozac and/or Trazodone. Pt reports her sister is a retired physician and believes it to be Trazodone. Pt reports no current sx. She will continue with Trazodone and if this effect continues she will be in contact and may decrease the dosing to 12.5 mg at HS. Time Spent With Patient Time: Total time managing care of this patient today ____ minutes. Documented by User: Tone Sorto MD 08/26/22 15:54 Event Note Date of Service: 08/26/22
== END 2022-08-23 11:15 | disposition home or self-care (01) | DRG 751 ==
LOC: HO.ED 16:16 → HO.PM5 20:06
PROVIDERS: Physician Assistant Medical; Admitting Provider Psychiatry & Neurology Psychiatry; Emergency Provider Emergency Medicine; Visit Provider Psychiatry & Neurology Psychiatry
DX: F33.2 Major depressive disorder, recurrent severe without psychotic features (principal); F43.12 Post-traumatic stress disorder, chronic; I10 Essential (primary) hypertension; Z20.822 Contact with and (suspected) exposure to COVID-19; Z79.899 Other long term (current) drug therapy
CPT/HCPCS: 36415; 80053; 80061; 80143; 80179; 80307; 81001; 83036; 84443; 85025; 87635; 93005; 99285; S9485